=== PATIENT | female | born 1945 | race Caucasian/White ===

== ENCOUNTER 2018-12-09 06:43 | Observation (INO) | payer MEDICARE, OTHER, SELFPAY ==
--- NOTE | 2018-11-28 11:46 | EKG12_ITS ---
Test Reason : Blood Pressure : / mmHG Vent. Rate : 061 BPM Atrial Rate : 061 BPM P-R Int : 158 ms QRS Dur : 084 ms QT Int : 412 ms P-R-T Axes : 033 000 022 degrees QTc Int : 414 ms Normal sinus rhythm Inferior infarct , age undetermined Abnormal ECG Confirmed by NIDHI LAI, JEFF ([id number]), assistant film editor VALENTE MARTELL ([id number]) on 12/03/2018 11:31:24 AM Referred By: Ken Bui Confirmed By:JEFF TERRELL MD
[2018-11-28 11:48] VITALS: BP 168/76; PULSE 61; RESP 18; TEMP 36.3; O2SAT 99; BMI 37.0
[2018-11-28 12:31] LABS: Absolute Lymphocyte Count 1.52 X10^3/uL (0.83-4.51); Absolute Neutrophil Count 4.2 X10^3/uL (2.0-7.7); Basophil# 0.04 X10^3/uL; Basophil% 0.6 % (0-1); Eosinophil# 0.08 X10^3/uL; Eosinophils% 1.3 % (0-5); Hematocrit 42.6 % (37-47); Hemoglobin 13.9 g/dL (12.0-15.0); Lymphocyte # 1.52 X10^3/ul (4.0); Lymphocyte % 24.7 % (19-41); Mean Corp Hgb Conc 32.6 g/dL (32-36); Mean Corpuscular Hgb 29.5 pg (27.0-32.0); Mean Corpuscular Volume 90.4 fL (81-99); Mean Platelet Vol. 9.3 fl (6.2-12.0); Monocyte# 0.35 X10^3/uL; Monocyte% 5.7 % (0-10); NRBC Flagged by Analyzer 0 % (0-5); Neutrophil # 4.15 X10^3/uL (2.7-7.7); Neutrophil % 67.4 % (47-70); Platelet Count 327 K/mm3 (150-450); RBC Distribution Width CV 13.6 % (11.6-14.6); RBC Distribution Width SD 45.8 fl (35.1-43.9); Red Blood Count 4.71 M/mm3 (4.2-5.4); White Blood Count 6.2 K/mm3 (4.4-11.0)
[2018-11-28 12:42] LABS: Anion Gap 6 (5-15); BUN 17 mg/dL (7-18); BUN/Creat Ratio 19.9 RATIO (10-20); Calcium,Total 8.7 mg/dL (8.5-10.1); Chloride 107 mmol/L (98-107); Creatinine, Serum 0.85 mg/dL (0.55-1.02); EST Glomerular Filtration Rate 69 mL/min (>60); Est Glom Filt Rate - Afr Amer 84 mL/min (>60); Estimated Creatinine Clearance 45.92 ml/min; Glucose 86 mg/dL (74-106); Potassium 3.9 mmol/L (3.5-5.1); Sodium Level 140 mmol/L (136-145)
[2018-12-09] VITALS (10 sets, daily range): BP systolic 108–146; BP diastolic 51–73; PULSE 62–86; RESP 14–16; TEMP 36.3–36.8; O2SAT 93–100; BMI 37.0
[2018-12-09 07:40] LABS: Bedside Glucose 98 mg/dL (70-110)
[2018-12-09] MEDS: Acetaminophen 500 MG Tablet 1000 MG PO ×3 (07:40→21:37)
[2018-12-09] MEDS: Gabapentin 600 MG Tablet PO (07:40)
[2018-12-09] MEDS: Lactated Ringers 1,000 ML 100 ML IV ×3 (08:10→20:32)
[2018-12-09] MEDS: Magnesium Sulfate 4gm/100mL 4 GM/100 ML IV.SOLN. IV (08:10)
[2018-12-09] MEDS: Cefazolin 2 GM in 0.9% Normal Saline 100 ML IV (09:05)
--- NOTE | 2018-12-09 09:05 | KNEE_PTH ---
PATIENT: NENA WHITE LOC: MS3 U#:[id number] AGE/SX: 73/F ROOM: [facility] [place] RE12/09/[address]: Dr. Ken Bui DO : 1945 BED: 1 DIS: 12/10/2018 SPEC #: [id number] RECD: 12/09/18 11:58 STATUS: FELIX REAlexia #: [id number] CHACHO: 12/09/18 09:[address]: Ken Bui DEPT: SURGICAL PATHOLOGY RECD BY: Gabi Garcia ENTERED: 12/09/18 12:39 SP TYPE: TOTAL KNEE OTHR DR: Dr. Tania Scruggs MD Tissues: Knee, NOS Procedures: Decalcification bone/plaque Surgery Specimen Level IV HEADER OPERATION: ERAS, total knee replacement PRE-OP DIAGNOSIS: Unilateral primary osteoarthritis, left knee TISSUE SUBMITTED: Left knee, bone and soft tissue MICROSCOPIC DIAGNOSIS Bone and soft tissue, left knee, total knee replacement: Pieces of bone with degenerative osteoarthritic changes. Fibroadipose tissue, fibroconnective tissue and moderately reactive synovial tissue with chronic inflammation. JIMENA:shahana 12/12/18 MICROSCOPIC DESCRIPTION Slides are reviewed. GROSS DESCRIPTION Received is one container designated bone and soft tissue left knee. The specimen consists of multiple fragments of cancino-yellow bone measuring in aggregate 10 x 10 x 4 cm. Also in the specimen container are multiple fragments of yellow-white soft tissue measuring in aggregate 8 x 6 x 3 cm. A number of bony fragments contain articular surfaces consistent with tibial plateau and femoral condyle and displaying prominent osteophyte formation, eburnation, and bone erosion. Glove Parts Inspector sections are submitted in two cassettes as follows: 1 - soft tissue, 2 - bone after decalcification. / JIMENA:shahana 12/09/18 TC:5 CPT: 37118, 59255
--- NOTE | 2018-12-09 10:25 | PCM.OPRPT ---
Report of Operation Date of Procedure: 12/09/18 Pre-Operative Diagnosis: OA left knee Post-Operative Diagnosis: same Surgery/Procedure Performed:: Left TKR Description of Surgical Findings:: Primary Surgeon/Physician: Ken Bui electrical mechanical technician: Kenton Hull PA-C electrical mechanical technician: Pre-Operative Diagnosis: OA left knee Post-Operative Diagnosis: same Surgery/Procedure Performed: Left TKR Estimated Blood Loss: 25 cc Specimen's Removed: bone Type of Anesthesia: spinal ASA Class: 2 Implants: [[employer] Triathlon size 4 cemented PS femur, size 4 cemented tibia, 9 mm polyethylene, 32 mm patella ] Indications: Patient has severe end-stage osteoarthritis diagnosed via x-rays in the knee. They have failed all forms of conservative measures including activity modification, injections, anti-inflammatories, use of assistive device. The patient has pain that affects on a daily basis and prevents him from doing things that they enjoyed. They have elected to undergo the above procedure. The risks of the procedure were discussed at length and their questions were answered. Procedure Description: The patient was greeted in the preoperative area. The [left ] knee was then marked with a surgical marker. Patient was then taken to or [address]. They were administered a dose of antibiotics as well as tranexamic acid. Once adequate anesthesia was obtained and airway was secured to placed in supine position on the operating room table. A well-padded tourniquet was placed on the affected extremity. Leg was then prepped and draped in the usual sterile fashion from the knee down. Ioban was used on the skin. Surgical timeout was then performed and confirmed with all present. Six-inch Esmarch was used to examine the limb and tourniquet was then inflated to 250 mmHg. A longitudinal incision was then planned and carried out in the anterior aspect of the knee. The dissection was then carried the length of the incision the extensor mechanism was identified. Standard medial parapatellar arthrotomy was then performed revealing severe eburnation of bone and periarticular osteophytes. There is complete loss of cartilage especially in the medial compartment with varus alignment. Anterior fat pad was removed for visualization purposes and the anterior medial aspect of the tibia was skeletonized for exposure to the knee. The knee was then flexed the patella was inverted. Opening reamer was then used in the femur approximately 1 cm anterior to the attachment of the PCL. The intramedullary valgus wand was then placed in the femur set at 5? of valgus. The distal femoral cutting jig was then applied to the femur with anticipated resection of approximately 8 mm. This was then made with a oscillating saw. The sizing guide was then placed referencing off the posterior condyles and also reference off the epicondylar axis. This was measured and the appropriate size 4-in-1 cutting jig was then applied to the distal femur. Anterior posterior cuts were made followed by the anterior and posterior chamfer cuts. These bony pieces and fragments were removed and placed on the back table. Posterior retractor was then utilized and the tibia was subluxed anteriorly. Intramedullary tibial alignment jig was then applied to the tibia referencing off the medial one third of the tibial tubercle the anterior tibial spine the middle aspect of the tibiotalar joint. Also reference off patient's [place] slope. The tibial cutting jig was then pinned with anticipated resection of 2 mm off of the deficient medial tibial condyle. This cut was made with the oscillating saw. Once this was complete a laminar blow pit operator was utilized in both medial lateral meniscus were removed and a posterior capsular osteophytes were also removed. Posterior capsule release was performed in the posterior capsule as well as the geniculate arteries are treated with the aqua Parvin. The tibia was incised and the appropriate sized tibial tray was then pinned. The femoral box cutting jig was then applied to the femur and the box was prepared removing a portion of the intercondylar notch. The femoral trial was then placed and the knee was trialed. Full flexion-extension were easily achieved. The knee seemed to balance quite nicely. Any remaining osteophytes were removed at this time. Once this was complete the patella was everted and the CampEasy patella reaming device was then utilized the patella was then placed in the appropriate jig and reamer was then used to remove approximately 9 mm of the undersurface of the patella. A soft tissue remaining was in the way was removed and patella trial was then placed listed maintain excellent tracking using the no thumbs technique. The tibial tray at this point was punched to accommodate the fins of the final implant. At this point cement was mixed on the back table. The trial components were removed and the knee was copiously irrigated. Did use a cocktail of injection for postoperative pain control. The final components were then cemented in the standard fashion and excess cement was removed with cement removal tools and patellar clamp is placed in the patella. As the cement had cured in full extension tourniquet was deflated and hemostasis was perfect with Bovie cautery as well as the aqua Manus. Needle is once again trialed with different size polyethylenes to ensure the full range of motion was achieved as well as excellent balancing ligamentously was achieved. At this point the knee was copiously irrigated. Final implant was then inserted locking mechanism was engaged and confirmed to be locked. The arthrotomy was then closed with #1 Vicryl aggravate type fashion interrupted. Subcutaneous tissue was closed with 0 Vicryl and surgical gorge were placed in the skin. A occlusive silver impregnated dressing was then applied followed by well-padded sterile dressing secured with an Diego wrap. The patient was taken to the PACU in stable condition. No complications known at this time. Postoperatively we will maintain standard total knee postoperative protocol. The use of the physician hospital nursing assistant was integral during this procedure. They assisted with positioning placement of the tourniquet retracting closure and placement of the dressing. The procedure would have been much more difficult without their expertise and assistance electrical mechanical technician: Kenton Hull Type of Anesthesia:: Spinal Anesthesiologist: Anirudh Post Specimen's removed: bone - Admit VTE Documentation VTE Present on Admission: No VTE Mechan Device Prophylaxis: SCD's, None VTE Pharm Prophylaxis ordered?: Yes
[2018-12-09] MEDS: Aspirin 325 MG Tablet PO ×2 (12:33→17:12)
[2018-12-09] MEDS: Calcium Carbonate 500 MG Tablet PO (12:33)
[2018-12-09] MEDS: Senna/Docusate Sodium 1 Tablet 2 TABLET PO ×2 (12:33→21:37)
[2018-12-09] MEDS: Cefazolin 1 GM/50 ML BAG IV (17:11)
[2018-12-09] MEDS: Ondansetron 4 MG/2 ML Vial IV (17:11)
[2018-12-10] MEDS: Cefazolin 1 GM/50 ML BAG IV (01:01)
[2018-12-10 03:02] VITALS: BP 114/62; PULSE 69; RESP 16; TEMP 36.6; O2SAT 92
[2018-12-10] MEDS: oxyCODONE 5 MG Tablet PO (03:13)
[2018-12-10 06:01] LABS: Hematocrit 42.3 % (37-47); Hemoglobin 13.4 g/dL (12.0-15.0); Mean Corp Hgb Conc 31.7 g/dL (32-36); Mean Corpuscular Hgb 29.5 pg (27.0-32.0); Mean Platelet Vol. 9.7 fl (6.2-12.0); Platelet Count 317 K/mm3 (150-450); RBC Distribution Width CV 13.7 % (11.6-14.6); Red Blood Count 4.55 M/mm3 (4.2-5.4); White Blood Count 8.8 K/mm3 (4.4-11.0)
[2018-12-10 06:27] LABS: Anion Gap 5 (5-15); BUN 13 mg/dL (7-18); BUN/Creat Ratio 14.4 RATIO (10-20); Calcium,Total 8.4 mg/dL (8.5-10.1); Chloride 106 mmol/L (98-107); EST Glomerular Filtration Rate 65 mL/min (>60); Est Glom Filt Rate - Afr Amer 78 mL/min (>60); Estimated Creatinine Clearance 43.37 ml/min; Glucose 85 mg/dL (74-106); Potassium 3.7 mmol/L (3.5-5.1); Sodium Level 140 mmol/L (136-145)
[2018-12-10] MEDS: Acetaminophen 500 MG Tablet 1000 MG PO ×2 (07:11→14:08)
--- NOTE | 2018-12-10 07:37 | PN.ORTHO_ITS ---
Subjective: Patient sitting at bedside, patient states her pain is well-managed. Patient states she is ready for discharge home. States she will be doing outpatient therapy at [facility] [place]. Denies chest pain, shortness of breath, calf pain, nausea vomiting. Has no other complaints. Objective: Dressings clean dry intact. Negative signs and symptoms of DVT. Vital signs labs within normal limits. Patient is afebrile, neurovascularly intact. Patient no respiratory distress, speaking full sentences. - Physical Exam Vitals/I&O's: Vital Signs Temp Pulse Resp BP Pulse Ox 97.8 F 69 16 114/62 92 12/10/18 03:02 12/10/18 03:02 12/10/18 03:02 12/10/18 03:02 12/10/18 03:02 Oxygen Flow Rate (L/min) 6 Oxygen Delivery Method Room Air Weight: 91.8 kg Body Mass Index (BMI) 37.0 Intake and Output for Last 24 Hours 12/08/18 12/09/18 12/10/18 23:59 23:59 23:59 Intake Total 3201.66 / 3321.66 1041.67 / 1041.67 Output Total 400 / 750 1150 / 1150 Balance 2801.66 / 2571.66 -108.33 / -108.33 General: Alert, Oriented x3, Cooperative HEENT: PERRLA Oral: Moist Mucosa Neurological: Cranial nerves II-XII grossly intact Psych/Mental Status: Normal Affect, Alert and oriented to time, place, person, mood and affect Laboratory Results 12/09/18 07:32: POC Glucose 98 12/10/18 05:25: WBC 8.8, RBC 4.55, Hgb 13.4, Hct 42.3, MCV 93.0, MCH 29.5, MCHC 31.7 L, RDW Std Deviation 47.0 H, RDW Coeff of Triston 13.7, Plt Count 317, MPV 9.7 12/10/18 05:25: Sodium 140, Potassium 3.7, Chloride 106, Carbon Dioxide 29.0, Anion Gap 5, BUN 13, Creatinine 0.90, Estim Creat Clear Calc 43.37, Est GFR (MDRD) Af Amer 78, Est GFR (MDRD) Non-Af 65, BUN/Creatinine Ratio 14.4, Glucose 85, Calcium 8.4 L Current Medications Acetaminophen (Tylenol) 1,000 mg PO Q8 [facility] Last Admin: 12/10/18 07:11 Dose: 1,000 mg Documented by: [facility] Admin: 12/09/18 17:12 Dose: 325 mg Documented by: Calcium Carbonate (Tums) 500 mg PO DAILY [facility] Last Admin: 12/09/18 12:33 Dose: 500 mg Documented by: Cholecalciferol (Vitamin D) 2,000 unit PO DAILY [facility] Last Admin: 12/09/18 12:33 Dose: 2,000 unit Documented by: Ondansetron HCl (Zofran) 4 mg IV Q8H PRN PRN PRN Reason: NAUSEA Last Admin: 12/09/18 17:11 Dose: 4 mg Documented by: Oxycodone HCl (Oxyir) 5 - 10 mg PO Q4H PRN PRN PRN Reason: Pain Score 4-10/10 Last Admin: 12/10/18 03:13 Dose: 5 mg Documented by: Promethazine HCl (Phenergan) 12.5 mg IM Q6H PRN PRN; Protocol PRN Reason: NAUSEA/VOMITING Senna/Docusate Sodium (Senokot-S, Ciera-Colace) 2 tablet PO BID [facility] Last Admin: 12/09/18 21:37 Dose: 2 tablet Documented by: Sodium Chloride () 10 - 40 ml IV UD PRN PRN Reason: SALINE FLUSH Medical Necessity - Tobacco Use Smoking Status: Never smoker Assessment/Plan Status post left total knee arthroplasty Plan 1. Continue all pain medications as prescribed 2. Continue physical therapy, weight-bear as tolerated, with walker. 3. Aspirin 325 mg 1 p.o. every 12 hours for postop DVT prophylaxis 4. Encourage incentive spirometry 5. Continue her physical therapy outpatient at [facility] [place] 6. Follow-up with Dr. Bui as scheduled 7. Discharge home this afternoon
--- NOTE | 2018-12-10 07:42 | DCINST_ITS ---
Discharge Diet: No Restrictions Discharge Activity: May Not Drive, May Shower, Use Walker May shower in (days): 2 Ice area for (Minutes): 20 - each hour while awake. Weight Bearing Status: Weight bearing as tolerated Elevate: Operative Extremity Additional Activity Instructions:: Wear elastic stockings for 2 weeks after your surgery. Call your doctor if your incision/area has: Continuous Slow Oozing, Sudden Increased Bleeding, Increased Pain/ Swelling, Increased Redness, Foul Smelling Discharge Call your doctor if you observe: Fever of 101 or Higher, Coldness, Increased Pain - in extremity, Numbness or Tingling, Change in Color, Calf discomfort, Uncontrolled pain Change Dressing in (Days):: 0 - and daily as needed. Remove Dressing in (days):: 8 Cleanse incision/area with: Soap & Water Allergies/Adverse Reactions: Allergies No Known Allergies Allergy (Verified 11/28/18 11:12) Medications to take at Discharge Calcium Carbonate [Calcium] 250 mg PO DAILY 11/28/18 Cholecalciferol (Vitamin D3) [Vitamin D3] 2,000 unit PO DAILY 11/28/18 Magnesium Amino Acid Chelate [Magnesium] 300 mg PO DAILY 11/28/18 Nabumetone 750 mg PO BID 11/28/18 Acetaminophen [Tylenol] 1,000 mg PO Q8 tab 12/10/18 Aspirin 325 mg PO BIDCM tab 12/10/18 Oxycodone [Oxyir] 5 - 10 mg PO Q4H PRN PRN 7 Days #85 tab 12/10/18 The following prescriptions were given: Oxycodone [Oxyir] 5 - 10 mg PO Q4H PRN PRN 7 Days #85 tab PRN Reason: Pain Score 4-10/10 Prescription Printed Primary Care Physician: Tania Scruggs MD [Primary Care Provider] - Test Results: Test results from this visit will be discussed in further detail at your follow- up appointment, if applicable. Please Follow Up With: Kenton Hull PA-C When: see pink sheet
[2018-12-10 09:53] VITALS: BP 151/63; PULSE 75; RESP 18; TEMP 36.1; O2SAT 95
[2018-12-10] MEDS: Senna/Docusate Sodium 1 Tablet 2 TABLET PO (09:57)
[2018-12-10] MEDS: Calcium Carbonate 500 MG Tablet PO (09:57)
[2018-12-10] MEDS: Aspirin 325 MG Tablet PO (09:57)
--- NOTE | 2018-12-10 10:17 | CASEMGMT ---
RN CM Assessment Introduced role of RN CM to patient.? Patient is alert, oriented and able?to participate in RN CM Assessment. ?Patient sitting up in chair next to bed and agrees to s/w this ad writer. Care providers, pharmacy, and demographics verified. Presentation: Scheduled Left TKR Admit Dx: Intractable Left knee pain Re-Admit: No Barriers/Issues: None. Patient states has a good support system and her and friends are able to help her. PCP: Tania Scruggs Specialists: Ortho- Dr Bui Preferred Pharmacy: [facility], [place]. States if [facility] still open upon DC and needs additional medications would want to get filled at [facility]. Insurance: [employer] A[employer], Aet[employer]exidia senior supp Rx Benefit:?Yes ?LNOK: Nia Smith LW/HPOA: Has both, This ad writer made copy of LW and placed in patient hard chart to be scanned on file. HPOA- Nia Smith. Living Arrangements:? Lives with her in a 2 story home with bedroom on upper level. [facility] has made LL set up arrangements where she will stay through time of recovery. 3 steps to enter home. ADL?s: Independent with ambulation and ADLs Transportation: Both patient and drive DME: Shower stool, RTS, walker, shoe horn HHC: None SNF: None Goal: Home with outpatient PT-already set up with [facility]. Denies any additional needs, concerns or issues with DC planning at this time. Aware CM remains available for any emerging needs. DC PLAN: Home with outpatient PT. TANYA Mai
== END 2018-12-10 14:10 | disposition home or self-care (01) ==
LOC: ACINP 11:05 → MS3 11:05
PROVIDERS: Admitting Provider Orthopaedic Surgery; Family Provider Internal Medicine; PCP Internal Medicine; Referring Provider Orthopaedic Surgery; Visit Provider Orthopaedic Surgery
PROC: (CPT 27447; principal; 2018-12-09 08:40)
DX: M17.12 Unilateral primary osteoarthritis, left knee (principal); R94.31 Abnormal electrocardiogram [ECG] [EKG]; Z86.718 Personal history of other venous thrombosis and embolism; K21.9 Gastro-esophageal reflux disease without esophagitis; Z79.82 Long term (current) use of aspirin; Z79.899 Other long term (current) drug therapy
CPT/HCPCS: 01400; 27447; 64447; 36415; 80048; 82962; 85025; 85027; 87077; 87081; 88305; 88311; 93005; 96361; 96365; 96366; 96375; 97110; 97162; 97166; 97530; 99218; C1776; J7120; G0378; G0379; J2405

== ENCOUNTER 2019-12-01 00:02 | Inpatient (IN) | payer MEDICARE, OTHER, SELFPAY ==
[2018-12-09 12:07] VITALS: BMI 37.0
[2019-12-01] VITALS (17 sets, daily range): BP systolic 120–192; BP diastolic 62–102; PULSE 60–80; RESP 14–19; TEMP 36.2–36.9; O2SAT 92–98; BMI 34.7; BMI 37.3; BMI 37.4
--- NOTE | 2019-12-01 00:28 | CT_ITS ---
STUDY: CT BRAIN WITHOUT CONTRAST REASON FOR EXAM: Female, 74 years old. NEAR SYNCOPE,DIZZINESS, CHEST HEAVINESS RADIATION DOSAGE (If Supplied By Facility): CTDIvol = ( 44.99 ) mGy, DLP = ( 779.24 ) mGycm TECHNIQUE: Transaxial CT imaging of the brain was performed without administration of intravenous contrast material. Individualized dose optimization techniques were used for this CT. COMPARISON: No relevant priors. FINDINGS: Normal soft tissue structures. Normal calvarium. Normal size ventricles and extra-axial spaces for the patient''s age. There are areas of decreased attenuation within the white matter tracts of the supratentorial brain, consistent with microvascular disease changes. Normal basal ganglia and thalami. Normal brainstem. Normal cerebellum. There is no intracranial hemorrhage. There are no findings of an acute ischemic infarction. Normal visualized paranasal sinuses. CT/Brain/Head without Contrast IMPRESSION: Chronic involutional changes of the brain. Electronically Signed: Martín Mullen, at 1:21 EDT Tel , Service support ,
--- NOTE | 2019-12-01 00:28 | EKG12_ITS ---
Test Reason : CP Blood Pressure : / mmHG Vent. Rate : 077 BPM Atrial Rate : 077 BPM P-R Int : 160 ms QRS Dur : 090 ms QT Int : 374 ms P-R-T Axes : 027 004 039 degrees QTc Int : 423 ms Normal sinus rhythm Cannot rule out Inferior infarct , age undetermined Abnormal ECG Confirmed by PEPITO LAI, JANAK ([id number]), editor newspaper VALENTE MARTELL ([id number]) on 12/02/2019 8:21:33 AM Referred By: Anirudh Linares Confirmed By:JANAK BEYER MD
--- NOTE | 2019-12-01 00:29 | ED.DCSUM_ITS ---
History of Present Illness Chief Complaint: Chest Pain Informant: Patient Narrative: Patient states she got up approximately an hour ago in her living room and felt lightheadedness and left-sided chest tightness with some radiation into her left arm. She did not pass out. She went upstairs and laid on the bed. She stated that the lightheadedness soon went away. She does not have a history of syncope in the past. She stated that the tightness persisted. She describes his discomfort as a tightness. Denies any cardiac history. Last stress test was approximately 5 years ago. No previous heart cath. Denies a history of hypertension. Patient denies any chronic cardiac precursors. She is a non- smoker. She had a remote DVT postsurgical approximately several years ago. No other PE risk factors. No recent trips. Denies any pain in her back. No Home treatment. - Past Medical History (1) Dyslipidemia Status: Chronic (2) Obesity (BMI 35.0-39.9 without comorbidity) Status: Chronic Past Medical History - Allergies and Home Meds Allergies/Adverse Reactions: Allergies No Known Allergies Allergy (Verified 12/01/19 00:09) Prior records reviewed: Yes Past Medical History: - - See problem list Surgical History: - - Reviewed Lives: With Family Smoking Status: Never smoker Alcohol: None Drugs: None - Family History Paternal Family History: Reports: Cancer, Heart Disease Review of Systems General: Denies: Chills, Fever, Sweats Eyes: Denies: Visual changes - bilaterally, Diplopia ENT: Denies: Rhinorrhea, Sore throat Cardiovascular: Reports: Chest pain. Denies: Palpitations Respiratory: Denies: Dyspnea, Cough, Dyspnea on exertion Gastrointestinal: Denies: Abdominal pain, Nausea, Vomiting, Diarrhea, Melena, Hematochezia Genitourinary: Denies: Dysuria, Hematuria, Frequency Musculoskeletal: Reports: Extremity Pain. Denies: Back pain Skin: Denies: Rash, Wounds Neurological: Reports: - - See HPI. Denies: Headache, Weakness, Numbness Physical Exam Vital Signs/Narrative: Vital Signs Temp Pulse Resp BP Pulse Ox 12/01/19 00:03 97.2 F L 77 15 192/102 H 97 General: Well nourished, Well developed, No Acute Distress Head: Normocephalic, Atraumatic Eyes: Perrl, EOMI ENT: Moist mucous membranes, No rhinorrhea Neck: Supple, Nontender Cardiovascular: Regular rate, Regular rhythm, No murmurs Respiratory: No distress, CTA bilaterally, Chest nontender Abdomen: Soft, Nontender, Nondistended, Normal bowel sounds Back: Nontender, Normal Inspection Extremities: Nontender, No edema Skin: Normal color, No rash Neurological: Alert, Oriented x3, Cranial nerves II-XII grossly intact, Normal Strength, Normal Sensation Psychological: Normal affect, Normal Mood Diagnostic/Tx/Re-eval - Medical Decision Making EKG obtained upon arrival shows sinus rhythm at a rate of 77. Q waves inferior lead III. No acute STEMI findings. Lab work and chest x-ray and CT head obtained. Lab work shows troponin indeterminate 0.05. Her prior levels were 0.04 so this is not much different. Given a dose of aspirin as well as sublingual nitro. Resting comfortably on reevaluation. At this time chest x- ray negative. I feel the patient should be admitted for further evaluation of her chest discomfort. CT head was negative. I have a low suspicion for subarachnoid hemorrhage causing near syncope. This could be cardiac related. Patient is in agreement. Will be discussed with the hospitalist. ED Disposition - Plan for ED Patient: Disposition: Acute Care [facility] Diagnosis: Chest pain at rest, Elevated troponin, Near syncope
[2019-12-01] MEDS: Aspirin 81 MG TAB.CHEW 324 MG PO (00:35)
[2019-12-01 00:50] LABS: Absolute Lymphocyte Count 1.72 X10^3/uL (0.83-4.51); Absolute Neutrophil Count 3.6 X10^3/uL (2.0-7.7); Basophil# 0.07 X10^3/uL; Basophil% 1.1 % (0-1); Eosinophil# 0.23 X10^3/uL; Eosinophils% 3.7 % (0-5); Hemoglobin 13.5 g/dL (12.0-15.0); Lymphocyte # 1.72 X10^3/ul (4.0); Lymphocyte % 27.6 % (19-41); Mean Corp Hgb Conc 31.4 g/dL (32-36); Mean Corpuscular Hgb 28.7 pg (27.0-32.0); Mean Corpuscular Volume 91.3 fL (81-99); Mean Platelet Vol. 9.8 fl (6.2-12.0); Monocyte# 0.61 X10^3/uL; Monocyte% 9.8 % (0-10); NRBC Flagged by Analyzer 0 % (0-5); Neutrophil # 3.55 X10^3/uL (2.7-7.7); Platelet Count 387 K/mm3 (150-450); RBC Distribution Width CV 14.2 % (11.6-14.6); RBC Distribution Width SD 48.2 fl (35.1-43.9); Red Blood Count 4.71 M/mm3 (4.2-5.4); White Blood Count 6.2 K/mm3 (4.4-11.0)
[2019-12-01 00:57] LABS: Anion Gap 5 (5-15); BUN 19 mg/dL (7-18); Calcium,Total 8.8 mg/dL (8.5-10.1); Chloride 109 mmol/L (98-107); EST Glomerular Filtration Rate 65 mL/min (>60); Est Glom Filt Rate - Afr Amer 78 mL/min (>60); Estimated Creatinine Clearance 42.72 ml/min; Glucose 109 mg/dL (74-106); Potassium 3.7 mmol/L (3.5-5.1); Sodium Level 142 mmol/L (136-145)
--- NOTE | 2019-12-01 01:11 | RAD_ITS ---
STUDY: X-RAY CHEST REASON FOR EXAM: Female, 74 years old. CHEST PAIN TODAY. TECHNIQUE: Single AP portable view of the chest. COMPARISON: None. FINDINGS: Subsegmental atelectases in the left lung base. There is no demonstrated pleural abnormality. Normal size heart. Normal mediastinum and meaghan. Normal visualized pulmonary arteries. Normal visualized aortic arch and descending thoracic aorta. There is a dextroscoliosis of the thoracic spine. There is degenerative osteoarthritis of the bilateral shoulders. There is no demonstrated abnormality of the visualized soft tissue structures of the upper abdomen. RAD/Chest PA and Lateral IMPRESSION: Degenerative changes, as described above. No demonstrated acute cardiopulmonary process. Electronically Signed: Martín Mullen, at 1:30 EDT Tel , Service support ,
[2019-12-01] MEDS: Nitroglycerin SL (ED/IMG/CATH) 0.4 MG TABLET SUBLINGUAL (01:56)
--- NOTE | 2019-12-01 03:02 | HP.PCM_ITS ---
Problem List (1) Chest pain at rest Status: Acute (2) Elevated troponin Status: Acute (3) Near syncope Status: Acute (4) Dyslipidemia Status: Chronic (5) Obesity (BMI 35.0-39.9 without comorbidity) Status: Chronic History of Present Illness Date of Admission: 12/01/19 Chief Complaint: chest pain The patient is a 74 year old F got out of a chair around 2300 last night and felt lightheaded and dizzy. She also started experiencing midsternal chest pain and had pain down her left arm. She was concerned and presented to the emergency room. Patient did receive aspirin and a dose of nitroglycerin and is currently chest pain-free at this time. Patient has never had an event like thi s before. Work-up in the emergency room was unremarkable. [] Past Medical History Past Medical History (Chronic Problems): Chronic Problems (Last Updated 12/01/19 @ 03:[address] Anirudh Linares DO) Obesity (BMI 35.0-39.9 without comorbidity) (Chronic) Dyslipidemia (Chronic) Medical History: Medical History (Last Updated 12/01/19 @ 03:[address] 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 Hyperlipidemia E78.5 Allergies No Known Allergies Allergy (Verified 12/01/19 00:09) Home Medications: Ambulatory Orders Medication Instructions Recorded Nabumetone 750 mg PO BID 11/28/18 Surgical History: - - foot surgery NOS. Lives: Spouse/ Significant Other Smoking Status: Never smoker Alcohol: None Drugs: None - *Family History Paternal History Items: Cancer, Heart Disease Review of Systems Constitutional: Denies: Anorexia, Chills, Fever, Night Sweats Eyes: Denies: Blurred vision, Double vision HEENT: Denies: Head Aches, Sinus Congestion, Sinus Drainage Cardiovascular: Reports: Chest Pain. Denies: Edema Respiratory: Denies: Cough, Shortness of breath at rest, Sputum production Gastrointestinal: Denies: Abdominal Pain, Nausea, Vomiting Genitourinary: Denies: Dysuria Musculoskeletal: Denies: Joint Pain, Joint Tenderness Skin: Denies: Rash, Wounds Neurological: Denies: Numbness, Tingling, Focal weakness Psychiatric: Denies: Anxiety, Depression Hematologic/ Lymphatic: Reports: Hx of blood clot. Denies: Easy Bruising, Easy Bleeding Comment: All review of systems were negative except as mentioned above in the history of present illness and the other review of systems. VTE Information - Inpt Only VTE Present on Admission: No VTE Mechan Device Prophylaxis: None VTE Pharm Prophylaxis ordered?: No Reason prophylaxis not ordered:: Treatment Not Indicated Patient Problems: Active and Suspected Problems (Last Updated 12/01/19 @ 03:[address] Anirudh Linares, DO) Chest pain at rest (Acute) Elevated troponin (Acute) Near syncope (Acute) - Physical Exam Vitals/I&O's: Vital Signs Temp Pulse Resp BP Pulse Ox 36.2 C L 64 19 H 159/83 H 96 12/01/19 00:03 12/01/19 03:00 12/01/19 03:00 12/01/19 03:00 12/01/19 03:00 Oxygen Delivery Method Room Air Weight: 86.183 kg Body Mass Index (BMI) 34.7 General: Alert, Cooperative, No apparent distress HEENT: Atraumatic, Normocephalic Oral: Moist Mucosa, No Gingival or Mucosal Lesions/ Ulcerations Neck: No Nodes, Thyroid Normal Size and Texture Lungs: Clear to auscultation, Normal air movement, No rhonchi, No wheeze, No rales Cardiovascular: Regular rate, Regular Rhythm, Normal S1, Normal S2, No murmurs Abdomen: Bowel Sounds Present, Soft, Non Tender, Non-Distended, No Hepato- splenomegaly Extremities: No edema, No Calf Tenderness Skin: No rashes, No breakdown Musculoskeletal: No Tenderness to Palpation of Joints or Extremities, No Muscle Wasting Psych/Mental Status: Normal Affect, Appropriate Laboratory Results 12/01/19 00:20: WBC 6.2, RBC 4.71, Hgb 13.5, Hct 43.0, MCV 91.3, MCH 28.7, MCHC 31.4 L, RDW Std Deviation 48.2 H, RDW Coeff of Triston 14.2, Plt Count 387, MPV 9.8, Immature Gran % (Auto) 0.800, Neut % (Auto) 57.0, Lymph % (Auto) 27.6, [place] % (Auto) 9.8, Eos % (Auto) 3.7, Baso % (Auto) 1.1 H, Absolute Neuts (auto) 3.6, Absolute Lymphs (auto) 1.72, Nucleated RBC % 0 12/01/19 00:20: Sodium 142, Potassium 3.7, Chloride 109 H, Carbon Dioxide 28.0, Anion Gap 5, BUN 19 H, Creatinine 0.90, Estim Creat Clear Calc 42.72, Est GFR (MDRD) Af Amer 78, Est GFR (MDRD) Non-Af 65, BUN/Creatinine Ratio 21.0 H, Glucose 109 H, Calcium 8.8, Troponin I 0.056 H 12/01/19 02:25: COVID-19 (RANGEL) Pending Chest x-ray personally reviewed and was poor inspiratory effort questionable pulmonary vascular congestion EKG reviewed and showed normal sinus rhythm with no acute changes. Current Medications Nitroglycerin (Nitroglycerin Sl (Ed/Img/Cath) 0.4 Mg Tablet) 0.4 mg SUBLINGUAL Q5M PRN PRN Reason: Chest pain Last Admin: 12/01/19 01:56 Dose: 0.4 mg Documented by: Assessment/Plan All Active Problems (Last Updated 12/01/19 @ 03:[address] Anirudh Linares, DO) Chest pain at rest (Acute) Elevated troponin (Acute) Near syncope (Acute) 1. Chest pain: KAREN score of 3. Katharine score of 123. Patient received nitroglycerin and aspirin in the emergency room. Early chest pain-free. Discussed with the patient and she feels that she would be able to do a treadmill stress test so a treadmill stress echocardiogram has been ordered. Based on the results of said stress test, if negative, then she will be discharged. If positive, consult cardiology. 2. Hypertension: Not on any treatment. Monitor while she was here and if continues to persist persistently elevated or goes up may need to consider initiating antihypertensives. 3. History of VTE: Sounds though she had a provoked clot due to a foot surgery in the past. Will check a d-dimer and if positive for age would recommend getting a CT angiogram of the chest. Patient denies any immobility. 4. VTE prophylaxis: Low risk as she is observation status at this time. 5. Advanced care planning: Discussed with the patient. Patient wishes to be full CODE STATUS. Will be checking a COVID-19 on her. Patient has no known exposure to anyone with COVID-19 but given this slight changes on chest x-ray and clinical picture is not unreasonable to check COVID-19. If that is negative the patient may go to the progressive care unit. OBSV E&M: [id number] Initial observation care L2
--- NOTE | 2019-12-01 05:08 | EKG12_ITS ---
Test Reason : ADMISSION EKG Blood Pressure : / mmHG Vent. Rate : 065 BPM Atrial Rate : 065 BPM P-R Int : 176 ms QRS Dur : 088 ms QT Int : 416 ms P-R-T Axes : 022 -03 025 degrees QTc Int : 432 ms Normal sinus rhythm Inferior infarct , age undetermined Abnormal ECG When compared with ECG of 01-DEC-2019 00:15, MANUAL COMPARISON REQUIRED, DATA IS UNCONFIRMED Confirmed by QUE LAI, KYLE ([id number]), book or script editor VALENTE MARTELL ([id number]) on 12/12/2019 9:51:33 A M Referred By: Anirudh Linares Confirmed By:MYRON GREY MD
[2019-12-01 05:50] LABS: D-Dimer Quantitative (DVT/PE) 0.84 FEU/ug/m (0.27-0.49)
[2019-12-01 05:52] LABS: Cholesterol 244 mg/dL (200); High Density Lipoprotein 69 mg/dL; Triglycerides 90 mg/dL; Very Low Density Lipoprotein 18 mg/dL (5-40)
[2019-12-01] MEDS: Aspirin E.C. 81 MG Tablet PO (06:05)
[2019-12-01] MEDS: Acetaminophen 325 MG Tablet 650 MG PO (06:09)
[2019-12-01] MEDS: 0.9% Saline Lock 10 ML Syringe IV (06:10)
--- NOTE | 2019-12-01 06:31 | CT_ITS ---
STUDY: CTA CHEST REASON FOR EXAM: Female, 74 years old. Midsternal chest pain radiates down left arm. Elevated d-dimer. History of hypertension. RADIATION DOSAGE (If Supplied By Facility): CTDIvol = ( 11.40 ) mGy, DLP = ( 504.14 ) mGycm TECHNIQUE: The examination was performed with the intravenous administration of 100 mL of ISOVUE-370. Post-processing of the angiographic images was performed, with multiplanar reformation and MIP (maximum intensity projection) reconstruction. Individualized dose optimization techniques were used for this CT. COMPARISON: None. FINDINGS: Normal enhancement of the main pulmonary artery and right and left pulmonary arteries. Normal enhancement of the bilateral peripheral pulmonary arteries. There is no demonstrated pulmonary embolism. Normal thoracic aorta and visualized great vessels. There is no demonstrated aortic dissection. Normal heart and pericardium. Normal mediastinum. Normal hilar regions. Normal visualized trachea and bronchi. The lungs are well expanded. Minimal subsegmental atelectases in the bibasilar region. No suspicious infiltrates. Normal pleura. Normal chest wall structures. Normal osseous structures. Prominent gastric hernia. CT/CTA Chest W/WO Contrast IMPRESSION: 1. Normal CTA chest examination, without a demonstrated pulmonary embolism or arterial dissection. 2. Prominent gastric hernia with minimal bibasilar subsegmental atelectases. Electronically Signed: Elliot Horton MD at 8:18 EDT , Service support ,
--- NOTE | 2019-12-01 06:33 | ECHOCS_ITS ---
Reason For Study: CHEST PAIN Procedure This was a 2D Doppler, Color Flow transthoracic echocardiogram. The study was technically difficult. Contrast injection was performed. Exam performed portable in patient room. Left Ventricle Normal LV size. The estimated ejection fraction is 65 %. Unable to assess diastolic dysfunction. No regional wall motion abnormalities noted. Right Ventricle Mildly dilated right ventricle. Normal systolic function. Atria The left atrium is moderately enlarged. Normal right atrium. No doppler evidence for ASD. Mitral Valve There is moderate mitral annular calcification. There is no mitral valve stenosis. No mitral valve insufficiency. Tricuspid Valve There is no tricuspid stenosis. Trivial tricuspid valve insufficiency. Unable to estimate RV systolic pressure due to insufficient tricuspid regurgitant envelope. Aortic Valve Moderate diffuse aortic valve thickening. There is no aortic stenosis. No aortic valve insufficiency. Pulmonic Valve There is no pulmonic valvular stenosis. No pulmonic valve insufficiency. Great Vessels Normal aortic root. Pericardium/Pleural No pericardial effusion. Medication Diluted definity 3.0ml given slow IV push to enhance endocardial definition. MMode/2D Measurements & Calculations LVIDd: 4.4 cm IVSd: 1.0 cm LVOT diam: 2.0 cm LVIDs: 3.0 cm LVPWd: 1.1 cm RVDd: 4.2 cm FS: 31.5 % LVOT area: 3.1 cm2 Ao root diam: 3.6 cm LAV(MOD-bp): 79.9 ml LVAd ap4: 31.5 cm2 LAV(MOD-bp) Indexed: 41.4 ml/m2 EDV(MOD-sp4): 106.8 ml LAV(MOD-sp2): 82.0 ml EDV(sp4-el): 112.4 ml LAV(MOD-sp4): 64.7 ml LVAs ap4: 15.9 cm2 ESV(MOD-sp4): 34.9 ml ESV(sp4-el): 35.2 ml EF(MOD-sp4): 67.3 % EF(sp4-el): 68.7 % SV(MOD-sp4): 71.9 ml SV(sp4-el): 77.3 ml Aortic Valve Planimetry: 1.8 cm2 LA A4 area: 21.9 cm2 LA dimension(2D): 4.8 cm RA A4 area: 13.8 cm2 Time Measurements MV dec time: 0.17 sec Doppler Measurements & Calculations MV E max porfirio: 118.7 cm/sec Lat Peak E' Porfirio: 7.4 cm/sec Med Peak E' Porfirio: 5.7 cm/sec MV A max porfirio: 171.6 cm/sec E/E' lat: 16.1 E/E' med: 20.9 MV E/A: 0.69 MV V2 max: 161.3 cm/sec Ao V2 max: 196.0 cm/sec LV V1 max: 108.1 cm/sec MV max P.4 mmHg Ao max P.4 mmHg LV V1 max P.7 mmHg MV V2 mean: 94.3 cm/sec Ao V2 mean: 134.8 cm/sec LV V1 mean P.6 mmHg MV mean P.0 mmHg Ao mean P.0 mmHg LV V1 mean: 77.6 cm/sec MV V2 VTI: 43.2 cm Ao V2 VTI: 44.3 cm LV V1 VTI: 26.2 cm MVA(VTI): 1.9 cm2 BI(I,D): 1.8 cm2 BI(V,D): 1.7 cm2 SV(LVOT): 80.5 ml PA V2 max: 87.5 cm/sec PI end-d porfirio: 79.2 cm/sec TR max porfirio: 262.7 cm/sec MV P1/2t-pr_phl: 89.7 msec TR max P.7 mmHg Interpretation Summary The estimated ejection fraction is 65 %. Unable to assess diastolic dysfunction. Mildly dilated right ventricle. The left atrium is moderately enlarged. There is moderate mitral annular calcification. Moderate diffuse aortic valve thickening. The study was technically difficult. Contrast injection was performed. Ordering Physician: Anirudh Linares Referring Physician: SLOAN CHRISTIANSEN Performed By: Octvaia James, SALBADORCS, RVT
[2019-12-01] MEDS: Etodolac 300 MG Capsule PO (07:58)
--- NOTE | 2019-12-01 14:02 | PCM.CONS.C ---
Reason for Consult Date of Consultation: 12/01/19 Reason for Consultation: cad,nstemi History of Present Illness: The patient is a 74 year old F [] Cardiac consultation requested to evaluate this patient, who presented on Sunday evening with symptoms of dizziness near syncope and chest pain with some radiation to the left arm. Subsequent cardiac evaluation here with EKG showed underlying normal sinus no significant abnormality She had mild elevation of cardiac biomarkers/troponin and treated as CAD with non-ST elevation myocardial infarction. She lives her , evidently the was here in the hospital 3 weeks ago seen by Dr. Rincon underwent cardiac catheterization and treated medically She does not have any prior cardiac history, however she has significant family history of CAD brothers and sisters had a history of myocardial infarction. Today she had mild discomfort in the chest with some radiation to left arm Patient has no prior other medical problems in particular no history of diabetes no history of a stroke. No prior history of myocardial infarction or coronary artery stent. Past Medical History Allergies/Adverse Reactions: Allergies No Known Allergies Allergy (Verified 12/01/19 00:09) Home Medications: Ambulatory Orders Medication Instructions Recorded Nabumetone 750 mg PO BID 11/28/18 Past Medical History (Chronic Problems): Chronic Problems (Last Updated 12/01/19 @ 03:[address] Anirudh Linares, DO) Obesity (BMI 35.0-39.9 without comorbidity) (Chronic) Dyslipidemia (Chronic) Surgical History: - - foot surgery NOS. - *Family History Paternal History Items: Cancer, Heart Disease Lives: Spouse/ Significant Other Smoking Status: Never smoker Alcohol: None Drugs: None Review of Systems - Review of Systems General: Denies: Fever, Night Sweats, Fatigue Cardiovascular: Denies: Shortness of Breath, Orthopnea, PND, Peripheral Edema, Palpitations, Lightheadedness, Dizziness, Near Syncope, Syncope Respiratory: Denies: Cough, Sputum Production, Hemoptysis Gastrointestinal: Reports: Indigestion. Denies: Hematemesis, Hematochezia, Melena Genitourinary: Denies: Dysuria, Hematuria Skin: Denies: Rash Objective: Vital Signs Temp Pulse Resp BP Pulse Ox 97.5 F L 62 18 162/79 H 97 12/01/19 08:00 12/01/19 08:00 12/01/19 08:00 12/01/19 08:00 12/01/19 08:00 Oxygen Delivery Method Room Air Weight: 204 lb 5.896 oz Body Mass Index (BMI) 37.3 Orthostatic Vital Signs Start: 12/01/19 06:04 Freq: q24h Status: Active Protocol: Activity Type Activity Date Activity User E-Sign Co-Sign Detail Recorded Client Recorded Date Recorded By Document 12/01/19 06:04 TM [id number] 12/01/19 06:09 TM 12/01/19 06:04 Orthostatic Vitals Standing -Blood Pressure (90/60-120/80) 161/90 H -Extremity Use Right Arm -Pulse Rate (60-100) 71 Sitting -Blood Pressure (90/60-120/80) 157/90 H -Extremity Use Right Arm -Pulse Rate (60-100) 68 Lying -Blood Pressure (90/60-120/80) 160/85 H -Extremity Use Right Arm -Pulse Rate (60-100) 68 Intake and Output for Last 24 Hours 11/29/19 11/30/19 12/01/19 23:59 23:59 23:59 Intake Total 255 / 255 Balance 255 / 255 General: Awake, Alert, Oriented x 3 HEENT: PERRL, EOMI, Sclera Non Icteric Neck: Supple, Good ROM, No Lymph Node Enlargement Lungs: Clear to auscultation Cardiovascular: Regular Rhythm, Normal S1, Normal S2, No Murmurs, No Rubs, No Gallops Vascular: No Carotid Bruits, Normal Femoral Pulses, Normal Radial Pulses, Normal Dorsalis Pedal Pulse, Normal Posterior Tibial Pulses Abdomen: Bowel Sounds Present, Soft, Non Tender, No HSM, No Organomegaly Extremities: No Clubbing, No edema 12/01/19 00:20: WBC 6.2, RBC 4.71, Hgb 13.5, Hct 43.0, MCV 91.3, MCH 28.7, MCHC 31.4 L, Plt Count 387, MPV 9.8, Immature Gran % (Auto) 0.800, Neut % (Auto) 57.0, Lymph % (Auto) 27.6, [place] % (Auto) 9.8, Eos % (Auto) 3.7, Baso % (Auto) 1.1 H, Absolute Neuts (auto) 3.6, Nucleated RBC % 0 12/01/19 00:20: Sodium 142, Potassium 3.7, Chloride 109 H, Carbon Dioxide 28.0, Anion Gap 5, BUN 19 H, Creatinine 0.90, Est GFR (MDRD) Af Amer 78, Est GFR (MDRD) Non-Af 65, BUN/Creatinine Ratio 21.0 H, Glucose 109 H, Calcium 8.8, Troponin I 0.056 H 12/01/19 05:24: D-Dimer Quant (PE/DVT) 0.84 H* 12/01/19 05:24: Troponin I 0.104 H, Triglycerides 90, Cholesterol 244 H, LDL Cholesterol 157 H, VLDL Cholesterol 18, HDL Cholesterol 69 12/01/19 07:56: Troponin I 0.119 H 12/01/19 11:10: Troponin I Cancelled 12/01/19 11:30: Troponin I 0.244 H Rhythm: EKG: ECHO: Stress Test: Cardiac Cath: PCI: CT Surgery: Holter monitor: EPS: PPM: CXR: Chest CT Scan: Assessment/Plan I discussed the cardiac care plan in detail with the patient and nursing staff Also reviewed the current medication will continue on the Lovenox will hold the night dose on the morning dose of Lovenox We will continue on low-dose aspirin, added beta-raina metoprolol tartrate 12.5 mg twice a day as well added statin/atorvastatin 40 mg once a day We will check serum troponin in the morning also will review an echocardiogram tonight Patient will be kept n.p.o. from midnight with the plan of proceeding with cardiac catheterization in the morning/right radial artery approach discussed finding with on cardiac cath. Patient understand the plan of cardiac care and she is willing to proceed with cardiac cath, informed consent obtained risk-benefit procedure explained in detail.
[2019-12-01] MEDS: Enoxaparin 100 MG/ML Syringe 90 MG SC (14:05)
--- NOTE | 2019-12-01 15:29 | PCM.PN.HOSP ---
Patient Problems: Active and Suspected Problems (Last Updated 12/01/19 @ 03:[address] Anirudh Linares, DO) Chest pain at rest (Acute) Elevated troponin (Acute) Near syncope (Acute) Reason for Visit: Follow-up for chest pain. Objective: Patient vitals are in acceptable range. Chest pain is resolved. Yesterday, she had chest pain lasted about half an hour, localized midsternal without radiation there is no shortness of breath. She does not have history of coronary artery disease and had a stress test about 5 years ago and was negative. Never had cath. Patient has strong family history of coronary artery disease her parent and her brother had SC. Incidentally, her had none NSTEMI about 3 weeks ago but treated medically On cardiac exercise specialist, normal sinus rhythm. Physical exam General: Alert, Oriented x3, Cooperative HEENT: Atraumatic, PERRLA, EOMI, Normocephalic Oral: No Gingival or Mucosal Lesions/ Ulcerations Neck: Supple, No JVD, Negative Carotid Bruits Lungs: Air entry diminished in bilateral lung bases. No crepitation/rhonchi Cardiovascular: Regular rate, Regular Rhythm, Normal S1, Normal S2, No murmurs Abdomen: Bowel Sounds Present, Soft, Non Tender, Non-Distended : No renal angle tenderness. No suprapubic tenderness. Extremities: No edema, Capillary Refill Less than 3 Seconds Skin: No rashes, No breakdown Musculoskeletal: No Tenderness to Palpation of Joints or Extremities Neurological: Cranial nerves II-XII grossly intact, Deep Tendon Reflexes 2+/4 and Symmetrical, Neuro grossly intact Psych/Mental Status: Normal Affect, Appropriate. Vitals/I&O's: Vital Signs Temp Pulse Resp BP Pulse Ox 97.9 F 68 18 154/75 H 95 12/01/19 14:34 12/01/19 15:00 12/01/19 14:34 12/01/19 14:34 12/01/19 14:34 Oxygen Delivery Method Room Air Weight: 204 lb 5.896 oz Body Mass Index (BMI) 37.3 Orthostatic Vital Signs Start: 12/01/19 06:04 Freq: q24h Status: Active Protocol: Activity Type Activity Date Activity User E-Sign Co-Sign Detail Recorded Client Recorded Date Recorded By Document 12/01/19 06:04 [id number] 12/01/19 06:09 12/01/19 06:04 Orthostatic Vitals Standing -Blood Pressure (90/60-120/80) 161/90 H -Extremity Use Right Arm -Pulse Rate (60-100) 71 Sitting -Blood Pressure (90/60-120/80) 157/90 H -Extremity Use Right Arm -Pulse Rate (60-100) 68 Lying -Blood Pressure (90/60-120/80) 160/85 H -Extremity Use Right Arm -Pulse Rate (60-100) 68 Intake and Output for Last 24 Hours 11/29/19 11/30/19 12/01/19 23:59 23:59 23:59 Intake Total 255 / 255 Balance 255 / 255 Laboratory Results 12/01/19 00:20: WBC 6.2, RBC 4.71, Hgb 13.5, Hct 43.0, MCV 91.3, MCH 28.7, MCHC 31.4 L, RDW Std Deviation 48.2 H, RDW Coeff of Triston 14.2, Plt Count 387, MPV 9.8, Immature Gran % (Auto) 0.800, Neut % (Auto) 57.0, Lymph % (Auto) 27.6, [place] % (Auto) 9.8, Eos % (Auto) 3.7, Baso % (Auto) 1.1 H, Absolute Neuts (auto) 3.6, Absolute Lymphs (auto) 1.72, Nucleated RBC % 0 12/01/19 00:20: Sodium 142, Potassium 3.7, Chloride 109 H, Carbon Dioxide 28.0, Anion Gap 5, BUN 19 H, Creatinine 0.90, Estim Creat Clear Calc 42.72, Est GFR (MDRD) Af Amer 78, Est GFR (MDRD) Non-Af 65, BUN/Creatinine Ratio 21.0 H, Glucose 109 H, Calcium 8.8, Troponin I 0.056 H 12/01/19 02:25: COVID-19 (RANGEL) Not Detected 12/01/19 05:24: D-Dimer Quant (PE/DVT) 0.84 H* 12/01/19 05:24: Troponin I 0.104 H, Triglycerides 90, Cholesterol 244 H, LDL Cholesterol 157 H, VLDL Cholesterol 18, HDL Cholesterol 69 12/01/19 07:56: Troponin I 0.119 H 12/01/19 11:10: Troponin I Cancelled 12/01/19 11:30: Troponin I 0.244 H Current Medications Acetaminophen (Acetaminophen 325 Mg Tablet) 650 mg PO Q6H PRN PRN PRN Reason: Pain Score 1-10/Temp > 100.7 F Last Admin: 12/01/19 06:09 Dose: 650 mg Documented by: Aspirin (Aspirin E.C. 81 Mg Tablet) 81 mg PO DAILY@0800 [facility] Last Admin: 12/01/19 06:05 Dose: 81 mg Documented by: Atorvastatin Calcium (Atorvastatin Calcium 40 Mg Tablet) 40 mg PO QHS [facility] Enoxaparin Sodium (Enoxaparin 100 Mg/Ml Syringe) 90 mg SC Q12@0600,1800 [facility] Last Admin: 12/01/19 14:05 Dose: 90 mg Documented by: Etodolac (Etodolac 300 Mg Capsule) 300 mg PO BIDCM [facility] Last Admin: 12/01/19 07:58 Dose: 300 mg Documented by: Sodium Chloride () 1,000 mls @ 15 mls/hr IV .Q48H [facility] Metoprolol Tartrate (Metoprolol Tartrate 25 Mg Tablet) 12.5 mg PO BID [facility] Nitroglycerin (Nitroglycerin (Inpatient Use) 0.4 Mg Tab.Subl) 0.4 mg SUBLINGUAL Q5M PRN PRN Reason: CARDIAC/CHEST PAIN Ondansetron HCl (Ondansetron 4 Mg/2 Ml Vial) 4 mg IV Q8H PRN PRN PRN Reason: NAUSEA/VOMITING Oxycodone HCl (Oxycodone 5 Mg Tablet) 5 mg PO Q4H PRN PRN PRN Reason: Pain Score 4-5 Oxycodone HCl (Oxycodone 5 Mg Tablet) 10 mg PO Q4H PRN PRN PRN Reason: Pain Score 6-10 Sodium Chloride (0.9% Saline Lock 10 Ml Syringe) 10 - 40 ml IV UD PRN PRN Reason: SALINE FLUSH Last Admin: 12/01/19 06:10 Dose: 10 ml Documented by: STROKE Vital Signs/Narrative: Vital Signs Temp Pulse Resp BP Pulse Ox 12/01/19 15:00 68 12/01/19 14:34 97.9 F 67 18 154/75 H 95 Medical Necessity - Tobacco Use Smoking Status: Never smoker Assessment/Plan All Active Problems (Last Updated 12/01/19 @ 03:[address] Anirudh Linares, DO) Chest pain at rest (Acute) Elevated troponin (Acute) Near syncope (Acute) 1. Atypical chest pain with elevated troponin, 0.244, non-STEMI: KAREN score of 3. Currently chest pain resolved. Discussed with the patent leather sorter. Plan for cardiac cath tomorrow a.m. On Lovenox therapeutic dose, metoprolol and aspirin. Lipid profile shows elevated total cholesterol 244, LDL 157. 2. Hypertension: Not on any treatment. Blood pressure is elevated, systolic 150s. Started on lisinopril 5 mg daily. 3. History of VTE: Provoked. Currently on therapeutic dose of Lovenox. CTPA was negative for pulmonary embolism or arterial dissection but showed prominent gastric hernia. 4. Dyslipidemia: On atorvastatin VTE prophylaxis: As mentioned above. 5. Advanced care planning: Discussed with the patient full code. Clinical Impression(s) from Imaging Studies Brain CT 12/01/19 00:28 IMPRESSION: Chronic involutional changes of the brain. Chest X-Ray 12/01/19 01:11 IMPRESSION: Degenerative changes, as described above. No demonstrated acute cardiopulmonary process. Chest CTA 12/01/19 06:31 IMPRESSION: 1. Normal CTA chest examination, without a demonstrated pulmonary embolism or arterial dissection. 2. Prominent gastric hernia with minimal bibasilar subsegmental atelectases. Electronically Signed: Elliot Horton MD at 8:18 EDT , Service support ,
[2019-12-01] MEDS: Lisinopril 5 MG Tablet PO (16:18)
[2019-12-01] MEDS: Atorvastatin Calcium 40 MG Tablet PO (21:11)
[2019-12-01] MEDS: Metoprolol Tartrate 25 MG Tablet 12.5 MG PO (21:11)
[2019-12-02] VITALS (23 sets, daily range): BP systolic 113–180; BP diastolic 57–88; PULSE 54–87; RESP 14–18; TEMP 36–37.2; O2SAT 90–96
--- NOTE | 2019-12-02 05:55 | EKG12_ITS ---
Test Reason : AM Blood Pressure : / mmHG Vent. Rate : 059 BPM Atrial Rate : 059 BPM P-R Int : 180 ms QRS Dur : 088 ms QT Int : 432 ms P-R-T Axes : 042 003 039 degrees QTc Int : 427 ms Sinus bradycardia Otherwise normal ECG Confirmed by PEPITO LAI, JANAK ([id number]), online content editor VALENTE MARTELL ([id number]) on 12/03/2019 7:26:36 AM Referred By: Anirudh Linares Confirmed By:JANAK BEYER MD
[2019-12-02] MEDS: Aspirin E.C. 81 MG Tablet PO (06:12)
[2019-12-02] MEDS: Metoprolol Tartrate 25 MG Tablet 12.5 MG PO ×2 (06:12→22:42)
[2019-12-02] MEDS: Lisinopril 5 MG Tablet PO (06:12)
[2019-12-02 07:49] LABS: Anion Gap 5 (5-15); BUN 14 mg/dL (7-18); BUN/Creat Ratio 17.3 RATIO (10-20); Calcium,Total 8.6 mg/dL (8.5-10.1); Chloride 106 mmol/L (98-107); Creatinine, Serum 0.81 mg/dL (0.55-1.02); EST Glomerular Filtration Rate 73 mL/min (>60); Est Glom Filt Rate - Afr Amer 89 mL/min (>60); Estimated Creatinine Clearance 47.46 ml/min; Glucose 87 mg/dL (74-106); Potassium 4.1 mmol/L (3.5-5.1); Sodium Level 139 mmol/L (136-145)
[2019-12-02] MEDS: 0.9% Normal Saline 1,000 ML 15 ML IV (07:51)
[2019-12-02] MEDS: 0.9% Normal Saline 1,000 ML 75 ML IV (13:34)
[2019-12-02] MEDS: Labetalol (Prefilled) 20 MG/4 ML 5 MG IV (13:34)
[2019-12-02] MEDS: Acetaminophen 325 MG Tablet 650 MG PO ×2 (13:37→20:00)
--- NOTE | 2019-12-02 15:19 | PCM.PN.HOSP ---
Patient Problems: Active and Suspected Problems (Last Updated 12/01/19 @ 03:[address] Anirudh Linares, DO) Chest pain at rest (Acute) Elevated troponin (Acute) Near syncope (Acute) Reason for Visit: f/u NSTEMI Objective: Pt doesn't have chest pain or SOB. Vitals are in acceptable limit Had Card cath today Physical exam General: Alert, Oriented x3, Cooperative HEENT: Atraumatic, PERRLA, EOMI, Normocephalic Oral: No Gingival or Mucosal Lesions/ Ulcerations Neck: Supple, No JVD, Negative Carotid Bruits Lungs: Air entry diminished in bilateral lung bases. No crepitation/rhonchi Cardiovascular: Regular rate, Regular Rhythm, Normal S1, Normal S2, No murmurs Abdomen: Bowel Sounds Present, Soft, Non Tender, Non-Distended : No renal angle tenderness. No suprapubic tenderness. Extremities: No edema, Capillary Refill Less than 3 Seconds Skin: No rashes, No breakdown Musculoskeletal: No Tenderness to Palpation of Joints or Extremities Neurological: Cranial nerves II-XII grossly intact, Deep Tendon Reflexes 2+/4 and Symmetrical, Neuro grossly intact Psych/Mental Status: Normal Affect, Appropriate. Vitals/I&O's: Vital Signs Temp Pulse Resp BP Pulse Ox 98.0 F 68 18 154/68 H 91 12/02/19 14:10 12/02/19 14:10 12/02/19 14:10 12/02/19 14:10 12/02/19 14:10 Oxygen Flow Rate (L/min) 1 Oxygen Delivery Method Room Air Weight: 204 lb 5.896 oz Body Mass Index (BMI) 37.3 Orthostatic Vital Signs Start: 12/01/19 06:04 Freq: q24h Status: Active Protocol: Activity Type Activity Date Activity User E-Sign Co-Sign Detail Recorded Client Recorded Date Recorded By Document 12/02/19 06:04 AE [id number] 12/02/19 06:10 AE 12/02/19 06:04 Orthostatic Vitals Standing -Blood Pressure (90/60-120/80) 126/77 H -Extremity Use Right Arm -Pulse Rate (60-100) 63 Sitting -Blood Pressure (90/60-120/80) 141/76 H -Extremity Use Right Arm -Pulse Rate (60-100) 62 Lying -Blood Pressure (90/60-120/80) 134/74 H -Extremity Use Right Arm -Pulse Rate (60-100) 60 Intake and Output for Last 24 Hours 11/30/19 12/01/19 12/02/19 23:59 23:59 23:59 Intake Total 615 / 615 0 / 0 Balance 615 / 615 0 / 0 Laboratory Results 12/02/19 06:45: Sodium 139, Potassium 4.1, Chloride 106, Carbon Dioxide 28.0, Anion Gap 5, BUN 14, Creatinine 0.81, Estim Creat Clear Calc 47.46, Est GFR (MDRD) Af Amer 89, Est GFR (MDRD) Non-Af 73, BUN/Creatinine Ratio 17.3, Glucose 87, Calcium 8.6, Troponin I 0.215 H Current Medications Acetaminophen (Acetaminophen 325 Mg Tablet) 650 mg PO Q6H PRN PRN PRN Reason: Pain Score 1-10/Temp > 100.7 F Last Admin: 12/02/19 13:37 Dose: 650 mg Documented by: Aspirin (Aspirin E.C. 81 Mg Tablet) 81 mg PO DAILY@0800 [facility] Last Admin: 12/02/19 06:12 Dose: 81 mg Documented by: Atorvastatin Calcium (Atorvastatin Calcium 40 Mg Tablet) 40 mg PO QHS [facility] Last Admin: 12/01/19 21:11 Dose: 40 mg Documented by: Clopidogrel Bisulfate (Clopidogrel Bisulfate 75 Mg Tablet) 75 mg PO DAILY [facility] Enoxaparin Sodium (Enoxaparin 100 Mg/Ml Syringe) 90 mg SC Q12@0600,1800 [facility] Last Admin: 12/02/19 05:20 Dose: Not Given Documented by: Heparin Sodium (Beef Lung) (Heparin Lock 500 Unit/5 Ml In 10 Ml Syringe) 500 unit IV UD PRN PRN Reason: HEPARIN FLUSH Sodium Chloride () 1,000 mls @ 15 mls/hr IV .Q48H [facility] Last Admin: 12/02/19 07:51 Dose: 15 mls/hr Documented by: Sodium Chloride () 1,000 mls @ 75 mls/hr IV .[id number] [facility] Last Admin: 12/02/19 13:34 Dose: 75 mls/hr Documented by: Lisinopril (Lisinopril 5 Mg Tablet) 5 mg PO DAILY [facility] Last Admin: 12/02/19 06:12 Dose: 5 mg Documented by: Metoprolol Tartrate (Metoprolol Tartrate 25 Mg Tablet) 12.5 mg PO BID [facility] Last Admin: 12/02/19 06:12 Dose: 12.5 mg Documented by: Nitroglycerin (Nitroglycerin (Inpatient Use) 0.4 Mg Tab.Subl) 0.4 mg SUBLINGUAL Q5M PRN PRN Reason: CARDIAC/CHEST PAIN Ondansetron HCl (Ondansetron 4 Mg/2 Ml Vial) 4 mg IV Q8H PRN PRN PRN Reason: NAUSEA/VOMITING Oxycodone HCl (Oxycodone 5 Mg Tablet) 5 mg PO Q4H PRN PRN PRN Reason: Pain Score 4-5 Oxycodone HCl (Oxycodone 5 Mg Tablet) 10 mg PO Q4H PRN PRN PRN Reason: Pain Score 6-10 Sodium Chloride (0.9% Saline Lock 10 Ml Syringe) 10 - 40 ml IV UD PRN PRN Reason: SALINE FLUSH Last Admin: 12/01/19 06:10 Dose: 10 ml Documented by: STROKE Vital Signs/Narrative: Vital Signs Temp Pulse Resp BP Pulse Ox 12/02/19 14:10 98.0 F 68 18 154/68 H 91 12/02/19 13:58 97.2 F L 87 18 147/64 H 90 12/02/19 13:15 97.5 F L 71 18 180/87 H 93 12/02/19 12:30 97.3 F L 60 18 166/63 H 92 12/02/19 12:15 97.7 F L 62 18 161/68 H 91 12/02/19 12:00 97.6 F L 62 18 164/71 H 91 12/02/19 11:49 97.7 F L 60 18 152/71 H 93 12/02/19 11:46 97.7 F L 58 L 18 152/71 H 93 12/02/19 11:30 96.8 F L 60 18 163/70 H 91 Medical Necessity - Tobacco Use Smoking Status: Never smoker Assessment/Plan All Active Problems (Last Updated 12/01/19 @ 03:[address] Anirudh Linares DO) Chest pain at rest (Acute) Elevated troponin (Acute) Near syncope (Acute) 1.Non-STEMI: KAREN score of 3. Currently chest pain resolved. Discussed with the harbor police launch commander. On Lovenox therapeutic dose, metoprolol and aspirin. Atypical chest pain with elevated troponin, 0.244 Lipid profile shows elevated total cholesterol 244, LDL 157. 12/01: Had card cath. Right dominant. Mid LAD 60-70%, Distal LAD 50%. Mid LAD, FFR wnl. No PCI. Medial management. 2. Hypertension: Not on any treatment. Blood pressure is elevated, systolic 150s. Increase on lisinopril 10 mg daily. 3. History of VTE: Provoked. Currently on therapeutic dose of Lovenox. CTPA was negative for pulmonary embolism or arterial dissection but showed prominent gastric hernia. 4. Dyslipidemia: On atorvastatin VTE prophylaxis:on lovenox 40 mg sq daily 5. Advanced care planning: Discussed with the patient full code. Clinical Impression(s) from Imaging Studies Brain CT 12/01/19 00:28 IMPRESSION: Chronic involutional changes of the brain. Chest X-Ray 12/01/19 01:11 IMPRESSION: Degenerative changes, as described above. No demonstrated acute cardiopulmonary process. Chest CTA 12/01/19 06:31 IMPRESSION: 1. Normal CTA chest examination, without a demonstrated pulmonary embolism or arterial dissection. 2. Prominent gastric hernia with minimal bibasilar subsegmental atelectases. Electronically Signed: Elliot Horton MD at 8:18 EDT , Service support , Inpatient E&M: [id number] [facility] L[facility]
--- NOTE | 2019-12-02 16:48 | PCM.PN.CARD ---
Objective: Vital Signs Temp Pulse Resp BP Pulse Ox 98.0 F 77 18 154/68 H 91 12/02/19 14:10 12/02/19 14:57 12/02/19 14:10 12/02/19 14:10 12/02/19 14:10 Oxygen Flow Rate (L/min) 1 Oxygen Delivery Method Room Air Weight: 204 lb 5.896 oz Body Mass Index (BMI) 37.3 Orthostatic Vital Signs Start: 12/01/19 06:04 Freq: q24h Status: Active Protocol: Activity Type Activity Date Activity User E-Sign Co-Sign Detail Recorded Client Recorded Date Recorded By Document 12/02/19 06:04 AE [id number] 12/02/19 06:10 AE 12/02/19 06:04 Orthostatic Vitals Standing -Blood Pressure (90/60-120/80) 126/77 H -Extremity Use Right Arm -Pulse Rate (60-100) 63 Sitting -Blood Pressure (90/60-120/80) 141/76 H -Extremity Use Right Arm -Pulse Rate (60-100) 62 Lying -Blood Pressure (90/60-120/80) 134/74 H -Extremity Use Right Arm -Pulse Rate (60-100) 60 Intake and Output for Last 24 Hours 11/30/19 12/01/19 12/02/19 23:59 23:59 23:59 Intake Total 615 / 615 0 / 0 Balance 615 / 615 0 / 0 General: Awake, Alert, Oriented x 3 HEENT: PERRL, EOMI, Sclera Non Icteric Neck: Good ROM, No Lymph Node Enlargement Cardiovascular: Normal S1, Normal S2, No Murmurs, No Rubs, No Gallops Vascular: Normal Femoral Pulses, Normal Radial Pulses, Normal Dorsalis Pedal Pulse, Normal Posterior Tibial Pulses Abdomen: Soft, Non Tender, No HSM, No Organomegaly Extremities: No Clubbing, No edema 12/02/19 06:45: Sodium 139, Potassium 4.1, Chloride 106, Carbon Dioxide 28.0, Anion Gap 5, BUN 14, Creatinine 0.81, Est GFR (MDRD) Af Amer 89, Est GFR (MDRD) Non-Af 73, BUN/Creatinine Ratio 17.3, Glucose 87, Calcium 8.6, Troponin I 0.215 H Rhythm: EKG: ECHO: Stress Test: Cardiac Cath: PCI: CT Surgery: Holter monitor: EPS: PPM: CXR: Chest CT Scan: Medical Necessity - Tobacco Use Smoking Status: Never smoker Assessment/Plan 74 year patient with CAD/NSTEMI LV function is normal LHC intermediate mid LAD stenosis with Normal FFR(0.88-0.91) Discussed cardiac care plan with medical mangment and follow with cardiology as O.patient for continuation of medical therapy
--- NOTE | 2019-12-02 17:32 | NURSING ---
patient ambulated to bathroom and back to bed after bedrest completed, site remains free of bleeding and remains intact
[2019-12-02] MEDS: Atorvastatin Calcium 40 MG Tablet PO (22:42)
[2019-12-03] MEDS: 0.9% Normal Saline 1,000 ML 75 ML IV (02:56)
[2019-12-03 03:00] VITALS: PULSE 64
[2019-12-03 03:04] VITALS: BP 136/54; PULSE 72; RESP 18; TEMP 36.9; O2SAT 93
[2019-12-03 06:52] LABS: Anion Gap 4 (5-15); BUN 13 mg/dL (7-18); BUN/Creat Ratio 15.9 RATIO (10-20); Calcium,Total 8.3 mg/dL (8.5-10.1); Chloride 108 mmol/L (98-107); Creatinine, Serum 0.82 mg/dL (0.55-1.02); EST Glomerular Filtration Rate 72 mL/min (>60); Est Glom Filt Rate - Afr Amer 87 mL/min (>60); Estimated Creatinine Clearance 46.88 ml/min; Glucose 90 mg/dL (74-106); Sodium Level 139 mmol/L (136-145)
[2019-12-03 07:00] VITALS: PULSE 69
[2019-12-03] MEDS: Aspirin E.C. 81 MG Tablet PO (08:10)
--- NOTE | 2019-12-03 09:13 | DCINST_ITS ---
- Discharge Diagnoses Current Active Problems: Current Active and Chronic Problems (Last Updated 12/01/19 @ 03:[address] Anirudh Linares, DO) Obesity (BMI 35.0-39.9 without comorbidity) (Chronic) Dyslipidemia (Chronic) Chest pain at rest (Acute) Elevated troponin (Acute) Near syncope (Acute) You will use the following diet at home:: Cardiac Your food should be the consistency of: Regular Discharge Activity: Return to Normal Activity, May Not Drive - for 1 week. Had right femoral artery access Weight Bearing Status: Weight bearing as tolerated Call your doctor if you observe: Fever of 101 or Higher, Numbness or Tingling, Change in Color, Inability to have a bowel movement, Shortness of breath, Dizziness, Fainting spells, Swelling in the ankles, Chest pain, Prolonged hiccoughing, Increased palpitations (irregular heartbeat), Calf discomfort, Uncontrolled pain Allergies/Adverse Reactions: Allergies No Known Allergies Allergy (Verified 12/01/19 00:09) Medications to take at Discharge Aspirin E.C. [Ecotrin] 81 mg PO DAILY@0800 #30 tab 12/03/19 Clopidogrel Bisulfate [Plavix] 75 mg PO DAILY #30 tab 12/03/19 Lisinopril [Zestril] 10 mg PO DAILY #30 tab 12/03/19 Metoprolol Tartrate [Lopressor (beta raina)] 12.5 mg PO BID #60 tab 12/03/19 Nitroglycerin (INPATIENT USE) [Nitrostat] 0.4 mg SUBLINGUAL Q5M PRN #30 tab.subl 12/03/19 The following prescriptions were given: Aspirin E.C. [Ecotrin] 81 mg PO DAILY@0800 #30 tab Transmission Status: Pending to [facility] Metoprolol Tartrate [Lopressor (beta raina)] 12.5 mg PO BID #60 tab Transmission Status: Pending to [facility] Nitroglycerin (INPATIENT USE) [Nitrostat] 0.4 mg SUBLINGUAL Q5M PRN #30 tab.subl PRN Reason: Cardiac/Chest Pain Transmission Status: Pending to [facility] Clopidogrel Bisulfate [Plavix] 75 mg PO DAILY #30 tab Transmission Status: Pending to [facility] Lisinopril [Zestril] 10 mg PO DAILY #30 tab Transmission Status: Pending to [facility] Primary Care Physician: Tania Scruggs MD [Primary Care Provider] - Please follow up with your Primary Care Physician in: in 2 weeks Test Results: Test results from this visit will be discussed in further detail at your follow- up appointment, if applicable. Please Follow Up With: Isaiah Rincon MD When: in 2-4 weeks
--- NOTE | 2019-12-03 09:37 | PCM.PN.CARD ---
Subjectve: The patient is awake and alert. She denies any recurrent chest discomfort. She states overall she feels well. Objective: Vital Signs Temp Pulse Resp BP Pulse Ox 98.5 F 69 18 136/54 H 93 12/03/19 03:04 12/03/19 07:00 12/03/19 03:04 12/03/19 03:04 12/03/19 03:04 Oxygen Flow Rate (L/min) 1 Oxygen Delivery Method Room Air Weight: 204 lb 5.896 oz Body Mass Index (BMI) 37.3 Intake and Output for Last 24 Hours 12/01/19 12/02/19 12/03/19 23:59 23:59 23:59 Intake Total 615 / 615 512.5 / 512.5 1230 / 1230 Balance 615 / 615 512.5 / 512.5 1230 / 1230 General: Awake, Alert, Oriented x 3, Cooperative, No Acute Distress HEENT: Atraumatic, Normocephalic, PERRL, EOMI, Sclera Non Icteric Neck: Supple, Good ROM, No JVD Lungs: Clear to auscultation Cardiovascular: Regular Rhythm, Normal S1, Normal S2 Vascular: Normal Radial Pulses Abdomen: Bowel Sounds Present, Soft Extremities: No edema Neurological: No Focal Motor or Sensory Deficit Psych/Mental Status: Appropriate 12/03/19 05:45: Sodium 139, Potassium 4.0, Chloride 108 H, Carbon Dioxide 27.0, Anion Gap 4 L, BUN 13, Creatinine 0.82, Est GFR (MDRD) Af Amer 87, Est GFR (MDRD) Non-Af 72, BUN/Creatinine Ratio 15.9, Glucose 90, Calcium 8.3 L Rhythm: Sinus rhythm Medical Necessity - Tobacco Use Smoking Status: Never smoker Assessment/Plan 1. Non-STEMI The patient has undergone evaluation by interventional cardiology. She was found to have underlying CAD but a negative FFR and did not require PCI. She was recommended for continued medical management including antiplatelet therapy with clopidogrel/Plavix. At the moment she appears to be symptomatically stable and hemodynamically stable. She will continue medical therapy with plans for future outpatient follow-up. 2. Hyperlipidemia She will continue risk factor evaluation and care/medical therapy as deemed appropriate. 3. Obesity She has been counseled on the need to adjust diet, activity, etc., and bring her weight under better control. This note was generated using a voice recognition system and there may be incorrect words, spelling or punctuation that were not noted when reviewing the office note prior to saving.
[2019-12-03 10:11] VITALS: BP 112/49; PULSE 71
[2019-12-03] MEDS: Metoprolol Tartrate 25 MG Tablet 12.5 MG PO (10:11)
[2019-12-03] MEDS: Clopidogrel Bisulfate 75 MG Tablet PO (10:11)
[2019-12-03] MEDS: Lisinopril 10 MG Tablet PO (10:12)
[2019-12-03 10:26] VITALS: BP 112/49; PULSE 71; RESP 16; TEMP 37; O2SAT 94
[2019-12-03 10:48] VITALS: BP 112/49; PULSE 71; RESP 16; TEMP 37; O2SAT 94
--- NOTE | 2019-12-03 10:49 | CASEMGMT ---
JOHN WILSON assessment: Face to Face with patient for initial transition planning/care coordination assessment. JOHN WILSON introduced self and role at [facility], pt voices understanding and consents to assessment at this time. Pt is dressed and ready for discharge at this time. Pt is up in room with no difficulty but then sits down in for JOHN WILSON to complete assessment at this time. Pt is A/Ox4 at this time and answers all questions appropriately at this time. Care providers, pharmacy, and demographics verified/updated at this time. Presentation: Pt c/o dizziness, chest and left arm heaviness Admitting dx: Chest pain PCP: Kael Specialists: Pt states no current specialists. [facility] Insurance: [facility] A/B, AeR Prescription Benefit: [employer] Living Will/HPOA: Pt has a LW on file and is aware at this time. Pt states she does have a HPOA and states her is primary and nephew is secondary. Pt is aware that it is not on file at [facility] at this time. LNOK: Nia Smith, ; Jordan Ovalleshberger, nephew Living Arrangements: Pt states lives with in 2 story home and states no concerns at home at this time. Pt states is independent with ADL's. Transportation: Pt states drives most of the time and states no transportation concerns at this time. DME/HHC: Pt states has the following DME but does not use: cane, walker x2, grab bars, and shower bench. Pt states no need for any further DME. Pt states no hx of HHC or SNF in the past. Pt states no concerns with going home at time of discharge. Pt states is retired. Pt states does not smoke cigarettes or drink ETOH. Pt states no further concerns/needs at this time. CM to follow for any further discharge planning/needs. Advised pt to ask for CM if any further questions/concerns/needs arise, voices understanding. Pt Goal: Home Plan: [place] JOHN WILSON
--- NOTE | 2019-12-03 11:31 | PHA.DC.MC ---
Pharmacy Service has performed discharge medication reconciliation and counseling for this patient. 1. ASPIRIN 81MG PO DAILYCM 2. CLOPIDOGREL 75MG PO DAILY 3. LISINOPRIL 10MG PO DAILY 4. METOPROLOL TARTRATE 12.5MG PO BID 5. NITROGLYCERIN 0.4MG SL Q5M PRN CHEST PAIN The patient's discharge medication list was reviewed for discrepancies and discrepancies were resolved. Home Medications Aspirin E.C. [Ecotrin] 81 mg PO DAILY@0800 #30 tab 12/03/19 Clopidogrel Bisulfate [Plavix] 75 mg PO DAILY #30 tab 12/03/19 Lisinopril [Zestril] 10 mg PO DAILY #30 tab 12/03/19 Metoprolol Tartrate [Lopressor (beta raina)] 12.5 mg PO BID #60 tab 12/03/19 Nitroglycerin (INPATIENT USE) [Nitrostat] 0.4 mg SUBLINGUAL Q5M PRN #30 tab.subl 12/03/19 The patient was counseled on the following discharge medications and changes in medications for homegoing were reviewed. The Reason for Use, instructions for use, and potential side effects were reviewed for all new medications. The patient's questions regarding all of their medications were answered. The patient was able to verbally demonstrate an understanding of their discharge medications.
--- NOTE | 2019-12-03 12:02 | PCM.DC.SUM ---
Discharge Date and Diagnosis - Problem List Patient Problems: Active and Suspected Problems (Last Updated 12/01/19 @ 03:[address] Anirudh Linares DO) Chest pain at rest (Acute) Elevated troponin (Acute) Near syncope (Acute) Date of Admission: 12/01/19 Date of Discharge: 12/03/19 - Primary Discharge Diagnosis Acute Problems: Active Problems (Last Updated 12/01/19 @ 03:[address] Anirudh Linares DO) Chest pain at rest (Acute) Elevated troponin (Acute) Near syncope (Acute) - Secondary Discharge Diagnosis Chronic Problems: Chronic Problems (Last Updated 12/01/19 @ 03:[address] Anirudh Linares DO) Obesity (BMI 35.0-39.9 without comorbidity) (Chronic) Dyslipidemia (Chronic) Hospital Course and Treatment Summary of Care Provided: The patient is a 74 year old F with no prior cardiac disease admitted with chest pain, dizziness and elevated troponin consistent with non-STEMI 1.Non-STEMI: KAREN score of 3. Currently chest pain resolved. Discussed with the back up scan coordinator. On Lovenox therapeutic dose, metoprolol and aspirin. Elevated troponin, 0.244 Lipid profile shows elevated total cholesterol 244, LDL 157. On 12/01, patient had card cath. Right dominant. Mid LAD 60-70%, Distal LAD 50%. Mid LAD, FFR wnl. No PCI. Medial management. Discharge medication reconciliation done. Patient discharged on aspirin, metoprolol, Plavix, lisinopril and high intensity statin. Patient wants to follow with Dr. Rincon as her also follows with him. 2. Hypertension: Not on any treatment. Blood pressure is elevated, systolic 150s. Increase on lisinopril 10 mg daily. 3. History of VTE: Provoked. Currently on therapeutic dose of Lovenox. CTPA was negative for pulmonary embolism or arterial dissection but showed prominent gastric hernia. 4. Dyslipidemia: On atorvastatin VTE prophylaxis:on lovenox 40 mg sq daily 5. Advanced care planning: Discussed with the patient full code Discharge medication reconciliation done. Discharge follow-up instructions completed. Discharge process discussed with the patient and all questions were answered to patient's satisfaction. Patient on NSAID, nabumetone at home which is discontinued. Total time spent, exact 35 minutes on discharge meds reconciliation, examination, coordination of care with nurses and ancillary staff, review of imaging and blood test and discussion with the patient on follow-up instructions Patient Problems: Active and Suspected Problems (Last Updated 12/01/19 @ 03:[address] Anirudh Linares, DO) Chest pain at rest (Acute) Elevated troponin (Acute) Near syncope (Acute) Objective: Patient had not missed them yesterday. No acute overnight events. Blood pressure and heart rate are good. Physical exam General: Alert, Oriented x3, Cooperative HEENT: Atraumatic, PERRLA, EOMI, Normocephalic Oral: No Gingival or Mucosal Lesions/ Ulcerations Neck: Supple, No JVD, Negative Carotid Bruits Lungs: Air entry diminished in bilateral lung bases. No crepitation/rhonchi Cardiovascular: Regular rate, Regular Rhythm, Normal S1, Normal S2, No murmurs Abdomen: Bowel Sounds Present, Soft, Non Tender, Non-Distended : No renal angle tenderness. No suprapubic tenderness. Extremities: No edema, Capillary Refill Less than 3 Seconds Skin: Right femoral cardiac cath access site dry, no hematoma. No rashes, No breakdown Musculoskeletal: No Tenderness to Palpation of Joints or Extremities Neurological: Cranial nerves II-XII grossly intact, Deep Tendon Reflexes 2+/4 and Symmetrical, Neuro grossly intact Psych/Mental Status: Normal Affect, Appropriate. - Physical Exam Vitals/I&O's: Vital Signs Temp Pulse Resp BP Pulse Ox 98.5 F 69 18 136/54 H 93 12/03/19 03:04 12/03/19 07:00 12/03/19 03:04 12/03/19 03:04 12/03/19 03:04 Oxygen Flow Rate (L/min) 1 Oxygen Delivery Method Room Air Weight: 204 lb 5.896 oz Body Mass Index (BMI) 37.3 Intake and Output for Last 24 Hours 12/01/19 12/02/19 12/03/19 23:59 23:59 23:59 Intake Total 615 / 615 512.5 / 512.5 1230 / 1230 Balance 615 / 615 512.5 / 512.5 1230 / 1230 Laboratory Results 12/03/19 05:45: Sodium 139, Potassium 4.0, Chloride 108 H, Carbon Dioxide 27.0, Anion Gap 4 L, BUN 13, Creatinine 0.82, Estim Creat Clear Calc 46.88, Est GFR (MDRD) Af Amer 87, Est GFR (MDRD) Non-Af 72, BUN/Creatinine Ratio 15.9, Glucose 90, Calcium 8.3 L Current Medications Acetaminophen (Acetaminophen 325 Mg Tablet) 650 mg PO Q6H PRN PRN PRN Reason: Pain Score 1-10/Temp > 100.7 F Last Admin: 12/02/19 20:00 Dose: 650 mg Documented by: Aspirin (Aspirin E.C. 81 Mg Tablet) 81 mg PO DAILY@0800 [facility] Last Admin: 12/03/19 08:10 Dose: 81 mg Documented by: Atorvastatin Calcium (Atorvastatin Calcium 40 Mg Tablet) 40 mg PO QHS [facility] Last Admin: 12/02/19 22:42 Dose: 40 mg Documented by: Clopidogrel Bisulfate (Clopidogrel Bisulfate 75 Mg Tablet) 75 mg PO DAILY [facility] Enoxaparin Sodium (Enoxaparin 40 Mg/0.4 Ml Syringe) 40 mg SC DAILY [facility] Sodium Chloride () 1,000 mls @ 75 mls/hr IV .[id number] [facility] Last Infusion: 12/03/19 06:00 Dose: 0 mls/hr Documented by: Lisinopril (Lisinopril 10 Mg Tablet) 10 mg PO DAILY [facility] Metoprolol Tartrate (Metoprolol Tartrate 25 Mg Tablet) 12.5 mg PO BID [facility] Last Admin: 12/02/19 22:42 Dose: 12.5 mg Documented by: Nitroglycerin (Nitroglycerin (Inpatient Use) 0.4 Mg Tab.Subl) 0.4 mg SUBLINGUAL Q5M PRN PRN Reason: CARDIAC/CHEST PAIN Ondansetron HCl (Ondansetron 4 Mg/2 Ml Vial) 4 mg IV Q8H PRN PRN PRN Reason: NAUSEA/VOMITING Oxycodone HCl (Oxycodone 5 Mg Tablet) 5 mg PO Q4H PRN PRN PRN Reason: Pain Score 4-5 Oxycodone HCl (Oxycodone 5 Mg Tablet) 10 mg PO Q4H PRN PRN PRN Reason: Pain Score 6-10 Sodium Chloride (0.9% Saline Lock 10 Ml Syringe) 10 - 40 ml IV UD PRN PRN Reason: SALINE FLUSH Last Admin: 12/01/19 06:10 Dose: 10 ml Documented by: Home Medications: Medications to take at Discharge Aspirin E.C. [Ecotrin] 81 mg PO DAILY@0800 #30 tab 12/03/19 Clopidogrel Bisulfate [Plavix] 75 mg PO DAILY #30 tab 12/03/19 Lisinopril [Zestril] 10 mg PO DAILY #30 tab 12/03/19 Metoprolol Tartrate [Lopressor (beta acosta)] 12.5 mg PO BID #60 tab 12/03/19 Nitroglycerin (INPATIENT USE) [Nitrostat] 0.4 mg SUBLINGUAL Q5M PRN #30 tab.subl 12/03/19 Following Prescriptions Were Given to Patient: Aspirin E.C. [Ecotrin] 81 mg PO DAILY@0800 #30 tab Transmission Status: Received by [facility] Metoprolol Tartrate [Lopressor (beta acosta)] 12.5 mg PO BID #60 tab Transmission Status: Received by [facility] Nitroglycerin (INPATIENT USE) [Nitrostat] 0.4 mg SUBLINGUAL Q5M PRN #30 tab.subl PRN Reason: Cardiac/Chest Pain Transmission Status: Received by [facility] Clopidogrel Bisulfate [Plavix] 75 mg PO DAILY #30 tab Transmission Status: Received by [facility] Lisinopril [Zestril] 10 mg PO DAILY #30 tab Transmission Status: Received by [facility] Primary Care Physician: Tania Scruggs MD [Primary Care Provider] - Medical Necessity - Tobacco Use Smoking Status: Never smoker Meaningful Use Info Meaningful Use Diagnoses (Choose all that apply): AMI - AMI/Post PCI/Angioplasty Aspirin given w/in 24hrs of arrival?: Yes ASA at discharge?: Yes Statins at discharge?: Yes Diego/ARB at discharge?: Yes Beta Acosta at discharge?: Yes Done w/ Acute AK measure.: Yes Documented LVEF (%): 65 Inpatient E&M: [id number] [facility]
== END 2019-12-03 11:41 | disposition home or self-care (01) | DRG 282 ==
LOC: ED 01:38 → PCU 02:41
PROVIDERS: Internal Medicine Interventional Cardiology; Emergency Provider Emergency Medicine; PCP Internal Medicine; Visit Provider Internal Medicine
DX: I21.4 Non-ST elevation (NSTEMI) myocardial infarction (principal); I10 Essential (primary) hypertension; Z86.718 Personal history of other venous thrombosis and embolism; E78.5 Hyperlipidemia, unspecified; Z23 Encounter for immunization; E66.9 Obesity, unspecified; Z68.37 Body mass index [BMI] 37.0-37.9, adult; Z82.49 Family history of ischemic heart disease and other diseases of the circulatory system; I25.10 Atherosclerotic heart disease of native coronary artery without angina pectoris
CPT/HCPCS: 36415; 70450; 71046; 71275; 80048; 80061; 84484; 85025; 85379; 87635; 93005; 93306; 93454; 93571; 97802; 99152; 99153; 99284; G0008; J0153; J7030; Q9957; Q9967; 90686; A4216; C1760; C1769; C1887; C1894; C8929; J2405; U0003

== ENCOUNTER → 2020-03-25 09:33 | Outpatient (CLI) | payer MEDICARE, OTHER, SELFPAY ==
[2019-12-24 13:00] VITALS: BMI 36.7
[2020-03-25 10:52] LABS: AST(SGOT) 16 U/L (15-37); Alanine Aminotransfer ALT/SGPT 21 U/L (13-56); Albumin, Serum 3.5 g/dL (3.2-5.0); Alkaline Phosphatase 117 U/L (45-117); Bilirubin, Direct 0.11 mg/dL (0.00-0.30); Cholesterol 160 mg/dL (200); Globulin 3.9 g/dL (2.2-4.2); High Density Lipoprotein 67 mg/dL; Protein, Total 7.4 g/dL (6.4-8.2); Triglycerides 92 mg/dL; Very Low Density Lipoprotein 18 mg/dL (5-40)
== END ==
PROVIDERS: PCP Internal Medicine; Referring Provider Internal Medicine Cardiovascular Disease; Visit Provider Internal Medicine Cardiovascular Disease
DX: E78.00 Pure hypercholesterolemia, unspecified (principal)
CPT/HCPCS: 36415; 80061; 80076

== ENCOUNTER 2021-01-17 08:25 | Day surgery (SDC) | payer MEDICARE, OTHER, SELFPAY ==
--- NOTE | 2021-01-07 09:40 | EKG12_ITS ---
Test Reason : PRE-OP Blood Pressure : / mmHG Vent. Rate : 059 BPM Atrial Rate : 059 BPM P-R Int : 156 ms QRS Dur : 080 ms QT Int : 414 ms P-R-T Axes : 026 006 025 degrees QTc Int : 409 ms Sinus bradycardia Otherwise normal ECG Confirmed by NIDHI LAI, JEFF ([id number]), film editor VALENTE MARTELL ([id number]) on 01/07/2021 11:40:28 AM Referred By: Ken Bui Confirmed By:JEFF TERRELL MD
[2021-01-07 10:28] LABS: Hematocrit 39.7 % (37-47); Hemoglobin 12.7 g/dL (12.0-15.0); Mean Corpuscular Hgb 29.3 pg (27.0-32.0); Mean Corpuscular Volume 91.5 fL (81-99); Mean Platelet Vol. 9.7 fl (6.2-12.0); Platelet Count 378 K/mm3 (150-450); RBC Distribution Width CV 13.6 % (11.6-14.6); RBC Distribution Width SD 46.1 fl (35.1-43.9); Red Blood Count 4.34 M/mm3 (4.2-5.4); White Blood Count 6.6 K/mm3 (4.4-11.0)
[2021-01-07 10:45] LABS: Magnesium 2.2 mg/dL (1.6-2.6)
[2021-01-07 10:51] LABS: Anion Gap 5 (5-15); BUN 19 mg/dL (7-18); BUN/Creat Ratio 21.6 RATIO (10-20); Calcium,Total 9.2 mg/dL (8.5-10.1); Chloride 107 mmol/L (98-107); Creatinine, Serum 0.88 mg/dL (0.55-1.02); EST Glomerular Filtration Rate 67 mL/min (>60); Est Glom Filt Rate - Afr Amer 80 mL/min (>60); Glucose 92 mg/dL (74-106); Hemoglobin A1c 5.4 % (3.8-5.6); Potassium 3.7 mmol/L (3.5-5.1); Sodium Level 142 mmol/L (136-145)
[2021-01-17] VITALS (10 sets, daily range): BP systolic 118–152; BP diastolic 43–68; PULSE 62–83; RESP 16; TEMP 36.2–36.7; O2SAT 10–100; BMI 36.3
--- NOTE | 2021-01-17 | HIP_PTH ---
PATIENT: NENA WHITE LOC: [facility] [place] U#:[id number] AGE/SX: 75/F ROOM: RE01/17/[address]: Dr. Ken Bui DO : 1945 BED: DIS: 01/17/2021 SPEC #: [id number] RECD: 01/17/21 12:03 STATUS: FELIX REAlexia #: [id number] CHACHO: 01/17/21 00:[address]: Ken Bui DEPT: SURGICAL PATHOLOGY RECD BY: Wilver May ENTERED: 01/17/21 12:52 SP TYPE: TOTAL HIP OTHR DR: Dr. Tania Scruggs MD Tissues: Hip, NOS Procedures: Decalcification bone/plaque Surgery Specimen Level IV HEADER OPERATION: ERAS, total hip replacement PRE-OP DIAGNOSIS: Primary osteoarthritis left hip TISSUE SUBMITTED: Bone and tissue left hip MICROSCOPIC DIAGNOSIS Bone and soft tissue of left hip, total hip resection: Severe degenerative joint disease. AM:shahana 01/20/2021 MICROSCOPIC DESCRIPTION Slides are reviewed. GROSS DESCRIPTION Received is one container labeled with the patient's name and designated bone and soft tissue hip, left. The specimen consists of a cancino femoral head with portion of femoral neck. The femoral head measures 5 x 5 x 4.5 cm and the femoral neck measures 1 cm in length. The articular surface displays prominent osteophyte formation and bone erosion. Also present in the specimen container are predominantly multiple irregular fragments of bone reamings and pink-yellow soft tissue measuring in aggregate 6.5 x 7 x 2 cm. Levee Superintendent sections are submitted in two cassettes after decalcification as follows: 1 ? bone reamings, 2 ? femoral head. / SJ:sahhana 01/17/21 TC:5 [facility]: [id number], [id number]
[2021-01-17] MEDS: Acetaminophen 500 MG Tablet 1000 MG PO (09:22)
[2021-01-17] MEDS: Gabapentin 600 MG Tablet PO (09:23)
[2021-01-17] MEDS: Lactated Ringers 1,000 ML 999 ML IV (09:30)
[2021-01-17 10:00] LABS: Bedside Glucose 89 mg/dL (70-110)
[2021-01-17] MEDS: Cefazolin 2 GM in 0.9% Normal Saline 100 ML IV (10:18)
--- NOTE | 2021-01-17 11:44 | PCM.OPRPT ---
Report of Operation Date of Procedure: 01/17/21 Pre-Operative Diagnosis: OA left hip Post-Operative Diagnosis: same Surgery/Procedure Performed:: Left THR Description of Surgical Findings:: Report of Operation Date of Procedure: 01/17/21 Pre-Operative Diagnosis: OA [left ] hip Post-Operative Diagnosis: same Surgery/Procedure Performed: [ left ] THR outbound sales specialist: Kenton Hull PA-C Type of Anesthesia: spinal Anesthesiologist: Anirudh Post M.D. Specimen's removed: bone Estimated Blood Loss (mL): 50 cc Implants: [place] Accolade 2 size 5 +3 mm neck length stem, size 50 MDM cup Surgical Indications: Patient has severe end-stage osteoarthritic changes in the [ left ] hip. They have failed conservative measures including activity modification, anti-inflammatories, use of assistive devices. This to the point where the pain affects their ability to enjoy life and complete activities of daily living without discomfort. Patient has elected to undergo the above procedure Procedure Description: The patient was greeted in the preoperative area the [ left ] hip was marked with surgical marker preoperative antibiotics administered. The patient was then taken to or suite in stable condition. Preoperative tranexamic acid was also utilized. Once the patient was placed in the supine position on the operating room table and once adequate anesthesia was obtained they were then placed in the lateral decubitus position with the surgical hip facing the field. All bony prominences were well-padded. A commercial hip position was utilized. The appropriate extremity was then prepped and draped in usual sterile fashion. Ioban was placed on the skin. Surgical timeout was performed and surgery was commenced. A standard posterior approach to the hip was then performed. Incision was planned and carried out with a #10 blade scalpel. Dissection was then carried length of the incision to the IT band which was split proximally and distally. A Charnley retractor was then placed for soft tissue retraction exposing the piriformis. A standard posterior capsulotomy was performed. Severe eburnation of bone was noted and periarticular osteophytes were identified consistent with severe end-stage osteoarthritis. A femoral neck osteotomy guide was used to jennifer the proximal femur. A femoral osteotomy was then created approximately 1 fingerbreadth above the lesser trochanter. This was measured and placed on the back table. Once this was complete acetabular retractors were placed anteriorly and posteriorly. Labrum was then removed from the acetabulum exposing the entire cup of the acetabulum. Sequential reaming was then commenced and the acetabulum was medialized and sequentially widened in order to accommodate appropriate size cup. The acetabular cup was then impacted into position to the appropriate depth referencing approximately [45 ] anteversion and [ 45 ]of inclination. Excellent purchase was obtained. An appropriate size MDM liner was then placed. Attention was then turned to the femoral preparation. The hip was placed in the 90/90 position and a lateralizing box osteotome was utilized. Femoral starting awl was used followed by sequential broaching to the appropriate size. Excellent purchase was obtained with the stem no stem subsidence and excellent rotational stability was confirmed. A calcar reamer was then used in the trial head neck was placed on the broach. The hip was then located and taken through full range of motion flexion internal and external rotation as well as extension. Excellent stability was noted no impingement was identified of the components and leg lengths appear to be appropriate. The hip was at this point dislocated and the trial femoral components were removed. The final femoral stem was then implanted and impacted to the appropriate depth. Again excellent purchase was obtained no stem subsidence or rotational instability was noted. The hip was once again trialed and confirmation of leg length and stability was performed. Soft tissue tension also appeared to be appropriate. At this point the hip was redislocated and the trunnion was cleaned and dried meticulously in the appropriate size MDM femoral head was placed on the clean dry trunnion using a 12/14 Hernandez taper. The hip was once again relocated and again taken through full range of motion. I did inject a cocktail of postoperative pain medication in the deep and superficial tissues. Copious irrigation was performed. Anatomic closure of the piriformis tendon was performed through drill holes in the greater trochanter. A #1 Vicryl 0 Vicryl was utilized in subcutaneous tissue and surgical gorge were placed in the skin. A well-padded nonadherent dressing was applied. Patient was taken to PACU in stable condition. No complications were identified. Will follow standard postop protocol for total hip arthroplasty. My television production assistant played a vital role in the procedure beginning with positioning, holding retraction of soft tissues, positioning the leg to optimize visualization during the procedure and assisting with wound closure. Post-op Plan: DVT ppx; ASA 81 mg BID, thigh high compression stockings Follow up: in office in 2 weeks for wound check PT: to start POD #0 at hospital, outpatient PT should be arranged. Preoperative antibiotic: Ancef 2 grams IV Ken Bui DO Surgeon: Ken Bui outbound sales specialist: Kenton Hull Type of Anesthesia: Spinal Anesthesiologist: Anirudh Post Estimated Blood Loss (mL): 50 cc Fluids Replaced: 1000 cc crystalloid Admit VTE Documentation VTE Present on Admission: No VTE Mechan Device Prophylaxis: SCD's and Thigh High ANA CRISTINA Hose VTE Pharm Prophylaxis ordered?: Yes
--- NOTE | 2021-01-17 12:24 | RAD_ITS ---
STUDY: X-RAY - PELVIS AND LEFT HIP REASON FOR EXAM: Female, 75 years old. THR -- in PACU TECHNIQUE: 2 views of the pelvis and hip. COMPARISON: None. FINDINGS: The patient is status post left total hip replacement. There is good alignment. Postoperative soft tissue changes. RAD/Hip 1 view with Pelvis IMPRESSION: Status post left total hip replacement. There is good alignment. Postoperative soft tissue changes. Electronically Signed: Darrian Servin MD at 13:05 EST , Service support ,
[2021-01-17] MEDS: Lactated Ringers 1,000 ML 75 ML IV (12:28)
--- NOTE | 2021-01-17 16:27 | SUR.PHASEII ---
rn has updated physical therapy. they will come to [facility] to work with pt.
--- NOTE | 2021-01-17 17:33 | SUR.PHASEII ---
pt. declines tylenol at this time as she fears it may exacerbate her queasiness. she denies any pain.
== END 2021-01-17 18:57 | disposition home or self-care (01) ==
LOC: SDC 08:27 → AC 08:28
PROVIDERS: Anesthesiology; PCP Internal Medicine; Referring Provider Orthopaedic Surgery; Visit Provider Orthopaedic Surgery
PROC: 0SRB0JZ Replacement of Left Hip Joint with Synthetic Substitute, Open Approach (ICD-10-PCS; CPT 27130; principal; 2021-01-17 11:10)
DX: M16.12 Unilateral primary osteoarthritis, left hip (principal); K21.9 Gastro-esophageal reflux disease without esophagitis; E78.5 Hyperlipidemia, unspecified; I25.10 Atherosclerotic heart disease of native coronary artery without angina pectoris; E66.9 Obesity, unspecified; I10 Essential (primary) hypertension; I25.2 Old myocardial infarction; R01.1 Cardiac murmur, unspecified; Z86.718 Personal history of other venous thrombosis and embolism; Z79.899 Other long term (current) drug therapy; Z79.82 Long term (current) use of aspirin; Z68.36 Body mass index [BMI] 36.0-36.9, adult
CPT/HCPCS: 01214; 27130; 36415; 73501; 80048; 82962; 83036; 83735; 85027; 87081; 88305; 88311; 93005; 97162; C1776; J7120; J2405

== ENCOUNTER 2021-04-29 10:48 | Outpatient (CLI) | payer MEDICARE, OTHER, SELFPAY ==
[2021-04-29 12:05] LABS: AST(SGOT) 19 U/L (15-37); Alanine Aminotransfer ALT/SGPT 27 U/L (13-56); Albumin, Serum 3.3 g/dL (3.2-5.0); Alkaline Phosphatase 125 U/L (45-117); Bilirubin, Direct 0.08 mg/dL (0.00-0.30); Cholesterol 160 mg/dL (200); Globulin 3.9 g/dL (2.2-4.2); High Density Lipoprotein 66 mg/dL; Protein, Total 7.2 g/dL (6.4-8.2); Triglycerides 103 mg/dL; Very Low Density Lipoprotein 21 mg/dL (5-40)
== END 2021-04-29 23:59 | disposition home or self-care (01) ==
LOC: LAB 10:50
PROVIDERS: PCP Internal Medicine; Visit Provider Physician Assistant Medical
DX: E78.00 Pure hypercholesterolemia, unspecified (principal)
CPT/HCPCS: 36415; 80061; 80076

== ENCOUNTER 2021-05-11 06:22 | Outpatient (CLI) | payer MEDICARE, OTHER, SELFPAY ==
--- NOTE | 2021-05-11 15:07 | STRESSREP ---
Stress Test Report Exercise myocardial perfusion stress test. 75-year-old lady with a history of chest pain pain Stress protocol: Resting EKG demonstrates normal sinus rhythm with a 69 bpm resting blood pressure is 120/84 mmHg. The patient exercised according to regular Avila protocol for total duration of 5 minutes. Patient completed 2 minutes into stage II of the Avila protocol the maximum heart rate attained was 131 bpm which was 90% of max impact at heart rate the maximum workload was 7 metabolic equivalent. At rest there were no ST or T wave changes noted suggest ischemia at peak exercise upsloping ST changes were noted with did not meet the criteria for ischemia. No clinical angina was noted the test was terminated due to the target heart rate being achieved. The peak blood pressure was 190/84 mmHg. Myocardial perfusion protocol. 14.1 mCi of technetium 99m sestamibi was injected at rest. The patient exercised according to regular Avila protocol. At peak exercise 43.2 mCi of technetium 99m sestamibi was injected stress images were obtained stress and rest images were reconstructed and compared in the short axis vertical long horizontal long axis. Gated images were also obtained per Perfusion SPECT analysis: Review of the stress images demonstrate normal perfusion noted in all areas of the myocardium. The resting images similarly demonstrate normal uptake of tracer noted in all areas of the myocardium. No areas of perfusion are noted to suggest a defect. No previous infarct is noted and there is no ischemia noted. Gated SPECT analysis: The gated ejection fraction is 78%. Conclusion: Normal exercise myocardial perfusion stress test at a moderate workload. Preserved ejection fraction.
== END 2021-05-11 23:59 | disposition home or self-care (01) ==
LOC: CVS 06:23
PROVIDERS: PCP Internal Medicine; Visit Provider Physician Assistant Medical
DX: R07.9 Chest pain, unspecified (principal); I25.10 Atherosclerotic heart disease of native coronary artery without angina pectoris
CPT/HCPCS: 78452; 93017; A9500; A4216

== ENCOUNTER → 2024-04-29 | Outpatient (CLI) | payer MEDICARE, SELFPAY ==
--- NOTE | 2024-04-29 12:31 | ECHOD_ITS ---
Reason For Study Reason For Study: Murmur Procedure This was a 2D Doppler, Color Flow transthoracic echocardiogram. Exam performed in department. Left Ventricle Normal LV size. Left ventricular systolic function is normal. The left ventricular ejection fraction is 65 %. Stage 1 diastolic dysfunction. No regional wall motion abnormalities noted. Right Ventricle Normal RV size. Normal systolic function. Atria Normal left atrium. Normal right atrium. Mitral Valve There is moderate mitral annular calcification. Tricuspid Valve Normal tricuspid valve. Mild tricuspid valve insufficiency. Pulmonary artery systolic pressure is 24 mmHg. Aortic Valve Mild focal aortic valve calcification. Trisinus/trileaflet aortic valve. Peak aortic valve gradient 17 mmHg. Mean aortic valve gradient 9 mmHg. Pulmonic Valve Normal pulmonic valve. Great Vessels Normal aortic root. The pulmonary artery is normal size. Inferior vena cava collapse with respiration. Pericardium/Pleural No pericardial effusion. MMode/2D Measurements & Calculations LVIDd: 4.1 cm IVSd: 1.1 cm LVOT diam: 2.0 cm LVIDs: 2.4 cm LVPWd: 1.1 cm LVOT area: 3.2 cm2 RVDd: 3.7 cm FS: 41.6 % Ao root diam: 3.7 cm LAV(MOD-bp): 64.5 ml Ao sinus diam: 3.2 cm LAV(MOD-bp) Indexed: 33.4 ml/m2 LAV(MOD-sp2): 69.1 ml LAV(MOD-sp4): 58.[address] Junction: 2.4 cm Aortic Valve Planimetry: 1.6 cm2 LA A4 area: 20.4 cm2 LA dimension(2D): 4.6 cm TAPSE: 2.0 cm RA A4 area: 11.8 cm2 Time Measurements MV dec time: 0.29 sec Doppler Measurements & Calculations MV E max porfirio: 89.6 cm/sec Lat Peak E' Porfirio: 5.7 cm/sec Med Peak E' Porfirio: 5.4 cm/sec MV A max porfirio: 147.9 cm/sec E/E' lat: 15.7 E/E' med: 16.7 MV E/A: 0.61 MV V2 max: 158.4 cm/sec MV P1/2t max porfirio: 109.5 cm/sec Ao V2 max: 204.2 cm/sec MV max P.0 mmHg MV P1/2t: 96.1 msec Ao max P.7 mmHg MV V2 mean: 70.8 cm/sec MV dec slope: 333.7 cm/sec2 Ao V2 mean: 140.3 cm/sec MV mean P.5 mmHg Ao mean P.9 mmHg MV V2 VTI: 44.8 cm MVA(P1/2t): 2.3 cm2 Ao V2 VTI: 46.4 cm MVA(VTI): 2.0 cm2 AV (velocity ratio): 0.60 BI(I,D): 1.9 cm2 BI(V,D): 1.7 cm2 LV V1 max: 111.1 cm/sec SV(LVOT): 88.5 ml PA V2 max: 91.7 cm/sec LV V1 max P.9 mmHg PA V2 mean: 57.6 cm/sec LV V1 mean P.8 mmHg LV V1 mean: 78.0 cm/sec LV V1 VTI: 27.8 cm TR max porfirio: 223.8 cm/sec TR max P.0 mmHg ECHO/Echo Complete Interpretation Summary Normal LV size. Left ventricular systolic function is normal. The left ventricular ejection fraction is 65 %. There is moderate mitral annular calcification. Stage 1 diastolic dysfunction. Ordering Physician: Samra Connors Referring Physician: Samra Connors Performed By: Bharat Shultz RCS
== END | disposition home or self-care (01) ==
PROVIDERS: PCP Internal Medicine; Referring Provider Physician Assistant Medical; Visit Provider Physician Assistant Medical
DX: I34.81 Nonrheumatic mitral (valve) annulus calcification (principal)
CPT/HCPCS: 93306